=== PATIENT | female | born 1990 | race American Indian/Alaskan Native ===

== ENCOUNTER 2018-04-07 06:42 | Emergency (ER) | payer SELFPAY ==
[2018-04-07 07:00] VITALS: BP 108/51
[2018-04-07] MEDS ORDERED: BENADRYL IM ONE (07:22)
[2018-04-07] MEDS ORDERED: DECADRON IM ONE (07:22)
--- NOTE | 2018-04-07 07:22 | Emergency Department Report ---
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 TD vaccine is up-to-date. Unknown cause of rash. No new food, detergent, lotion etc. in her environment. Denies any respiratory involvement such as cough, wheezing, stridor, chest pain or tightness, shortness of breath, swelling of the legs or tongue. Denies any nausea or vomiting. Denies any fever or chills. Nothing makes rash better nothing makes it worse. No medication tried to resolve itching or rash. No known allergies per patient ED Review of Systems ROS: Stated complaint: RASH Other details as noted in HPI Constitutional: denies: chills, fever Eyes: denies: eye pain, eye discharge, vision change ENT: denies: ear pain, throat pain, congestion Respiratory: denies: cough, shortness of breath, SOB with exertion, SOB at rest , stridor, wheezing Cardiovascular: denies: chest pain, palpitations, edema, syncope Gastrointestinal: denies: nausea, vomiting, diarrhea, constipation Musculoskeletal: denies: back pain, joint swelling, arthralgia Skin: rash, pruritus. denies: lesions Neurological: denies: headache, weakness ED Past Medical Hx - Past Medical History Previous Medical History?: No - Surgical History Past Surgical History?: No - Family History Family history: hypertension - Social History Smoking Status: Never Smoker Substance Use Type: Alcohol Other Social History: Single female, works - Medications Home Medications: Home Medications Medication Instructions Recorded Confirmed Last Taken Type hydrOXYzine HCL [Atarax] 25 mg PO Q6HR PRN #16 tablet 04/07/18 Unknown Rx methylPREDNISolone [Medrol Dose 4 mg PO QAM 6 Days #1 pack 04/07/18 Unknown Rx Twan] Rash Exam - Exam General: Vital signs noted. No distress. Alert and acting appropriately. This is a 28-year-old female well-nourished well-developed in no acute distress. HEENT: No Periorbital Edema, No Conjuctival Injection, No Chemosis, No Perioral Edema, No Tongue Edema, No Uvular Edema, No Compromised Airway, No Drooling Lungs: Yes Good Air Exchange (CTAB), No Wheezes, No Ronchi, No Stridor, No Cough , No Labored Respirations, No Retractions, No Use of Accessory Muscles, No Other Abnormal Lung Sounds Heart: Yes Regular (S1, S2), No Murmur Skin: Yes Erythema, Yes Other (papular in nature.), No Urticarial Rash, No Maculopapular Rash, No Morbilliform rash, No Bulla(e), No Excoriations, No Weeping, No Tenderness, No Edema, No Encrustations Other: Positive: Abdomen Normal (soft, nontender to palpate in all quadrants and no guarding no rebound tenderness), Neurologic Normal (alert and oriented 3 with normal gait), Musculoskeletal Normal (no clubbing, cyanosis or edema. + 2 pulses all extremities and no neurovascular compromise) ED Course Vital Signs 04/07/18 06:52 Temperature 98.2 F Pulse Rate 61 Respiratory 16 Rate Blood Pressure 108/51 O2 Sat by Pulse 98 Oximetry - Reevaluation(s) Reevaluation #1: 04/07/18 07:46 Patient given Benadryl 50 mg IM and Decadron 10 mg IM for acute rash. Itching is better. ED Medical Decision Making - Medical Decision Making ED course: DX: 1-Contact dermatitis-patient given Decadron 10 mg IM 1 and emergency room and will be sent home with Medrol Dosepak 2. Pruritus-Benadryl 50 mg IM given which relieved the itching. Patient will be sent home and after Atarax Patient is stable and I discussed diagnosis and treatment plan with follow-up to dermatology as she was understanding. I also discussed with her she doesn't have a primary care doctor she can follow up with [facility]. Discharged home with her family member in stable condition with prescription for Medrol Dosepak and Atarax. Critical care attestation.: If time is entered above; I have spent that time in minutes in the direct care of this critically ill patient, excluding procedure time. ED Disposition Clinical Impression: Rash and nonspecific skin eruption, Pruritic condition Disposition: DC-01 TO HOME OR SELFCARE Is pt being admited?: No Does the pt Need Aspirin: No Condition: Stable Instructions: Acute Rash (ED), Contact Dermatitis (ED), Itchy Skin (ED) Additional Instructions: Keep affected area clean and dry Take medication as prescribed Atarax is for itching but please do not drive or operate heavy machinery while taking this medication as it causes drowsiness Follow up with dermatologists Follow up at [facility] as instructed and please refer to discharge instruction paperwork for detailed information and address and phone number Prescriptions: hydrOXYzine HCL [Atarax] 25 mg PO Q6HR PRN #16 tablet PRN Reason: Itching methylPREDNISolone [Medrol Dose Twan] 4 mg PO QAM 6 Days #1 pack Referrals: [facility] [Outside] - 04/08/18 SANDRA LEAL MD [Staff Physician] - 04/08/18 Forms: Work/School Release Form(ED)
== END 2018-04-07 08:02 | disposition home or self-care (01) ==
LOC: ED 06:42
DX: R21 Rash and other nonspecific skin eruption (principal)
CPT/HCPCS: 96372; 99282; J1100; J1200

== ENCOUNTER 2018-12-18 10:22 | Emergency (ER) | payer BC ==
[2018-12-18] MEDS ORDERED: IBUPROFEN PO ONE (10:58)
[2018-12-18] MEDS ORDERED: DECADRON IM ONE (10:58)
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
[2018-12-18] MEDS ORDERED: IBUPROFEN ONE (11:27)
[2018-12-18] MEDS ORDERED: DECADRON ONE (11:27)
[2018-12-18] MEDS ORDERED: ZOFRAN ONE (12:04)
[2018-12-18 15:27] VITALS: BP 118/54
== END 2018-12-18 11:38 | disposition home or self-care (01) ==
LOC: ED 10:22
DX: S63.501A Unspecified sprain of right wrist, initial encounter (principal); X50.0XXA Overexertion from strenuous movement or load, initial encounter; Y93.89 Activity, other specified; Y99.8 Other external cause status; Y92.89 Other specified places as the place of occurrence of the external cause
CPT/HCPCS: 29125; 96372; 99283; J1100; J2405

== ENCOUNTER 2019-01-11 17:17 | Emergency (ER) | payer BC ==
[2019-01-11] MEDS ORDERED: NACL 0.9% 500 ML 500 ML IV ONE (18:01)
--- NOTE | 2019-01-11 18:09 | Emergency Department Report ---
ED Allergic Reaction HPI - General Chief complaint: Allergic Reaction Stated complaint: ALLERGIC REACTION Time Seen by Provider: 01/11/19 17:46 Source: patient, EMS Mode of arrival: Stretcher Limitations: No Limitations - History of Present Illness Initial Comments: 28-year-old female presents to ED with allergic reaction. Patient states she was at work and began experiencing itching rash all over. Patient unclear what caused this reaction. She states this has happened in the past, while she was in [place], with unknown trigger. Patient states today she went to the nurse's office at her job and an EpiPen was administered. EMS was called, patient was given 50 mg of Benadryl and 20 mg Decadron IV. EMS reports patient had diffuse urticarial rash which is now resolved. Patient denies shortness of breath, nausea, vomiting. MD Complaint: allergic reaction -: This afternoon Exposure: unknown Symptoms: rash, itching. denies: facial swelling, lip swelling, difficulty swallowing, difficulty breathing, orolingual swelling, nausea, vomiting Severity: moderate Treatment Prior to Arrival: benadryl, epinephrine, steroids Previous Allergy History: prior ED visit(s) - Related Data Previous Rx's Medication Instructions Recorded Last Taken Type predniSONE [Deltasone] 20 mg PO DAILY #5 tablet 12/18/18 Unknown Rx predniSONE [Prednisone] 50 mg PO DAILY #5 tablet 01/11/19 Unknown Rx Allergies Allergy/AdvReac Type Severity Reaction Status Date / Time No Known Allergies Allergy Verified 03/02/16 12:05 ED Review of Systems ROS: Stated complaint: ALLERGIC REACTION Other details as noted in HPI Comment: All other systems reviewed and negative Constitutional: denies: chills, fever Respiratory: denies: shortness of breath, wheezing Cardiovascular: denies: chest pain Gastrointestinal: denies: abdominal pain, nausea, vomiting Skin: rash, pruritus ED Past Medical Hx - Social History Smoking Status: Never Smoker Substance Use Type: Alcohol - Medications Home Medications: Home Medications Medication Instructions Recorded Confirmed Last Taken Type predniSONE [Deltasone] 20 mg PO DAILY #5 tablet 12/18/18 Unknown Rx predniSONE [Prednisone] 50 mg PO DAILY #5 tablet 01/11/19 Unknown Rx ED Physical Exam - General Limitations: No Limitations General appearance: alert, in no apparent distress - Head Head exam: Present: atraumatic, normocephalic - Eye Eye exam: Present: normal appearance - ENT ENT exam: Present: mucous membranes moist - Neck Neck exam: Present: normal inspection - Respiratory Respiratory exam: Present: normal lung sounds bilaterally. Absent: respiratory distress - Cardiovascular Cardiovascular Exam: Present: regular rate, normal rhythm - GI/Abdominal GI/Abdominal exam: Present: soft. Absent: distended, tenderness - Extremities Exam Extremities exam: Present: normal inspection, full ROM - Neurological Exam Neurological exam: Present: alert, oriented X3, CN II-XII intact. Absent: motor sensory deficit - Psychiatric Psychiatric exam: Present: normal affect, normal mood - Skin Skin exam: Present: warm, dry, intact, normal color. Absent: rash, urticaria ED Course Vital Signs 01/11/19 01/11/19 01/11/19 19:04 19:05 19:07 Temperature Pulse Rate Respiratory Rate Blood Pressure 133/78 133/78 Blood Pressure [Left] O2 Sat by Pulse 100 99 99 Oximetry 01/11/19 01/11/19 01/11/19 19:09 19:11 19:17 Temperature Pulse Rate 91 H Respiratory 15 Rate Blood Pressure 133/78 133/78 129/69 Blood Pressure [Left] O2 Sat by Pulse 99 99 100 Oximetry 01/11/19 01/11/19 01/11/19 19:21 19:23 19:25 Temperature Pulse Rate 77 80 79 Respiratory 20 28 H 27 H Rate Blood Pressure 129/69 129/69 129/69 Blood Pressure [Left] O2 Sat by Pulse 98 99 98 Oximetry 01/11/19 01/11/19 01/11/19 19:27 19:29 19:31 Temperature Pulse Rate 82 81 83 Respiratory 26 H 27 H 24 Rate Blood Pressure 129/69 129/69 129/69 Blood Pressure [Left] O2 Sat by Pulse 99 99 99 Oximetry 01/11/19 01/11/19 01/11/19 19:33 19:35 19:37 Temperature Pulse Rate 85 83 83 Respiratory 26 H 37 H 29 H Rate Blood Pressure 129/69 129/69 129/69 Blood Pressure [Left] O2 Sat by Pulse 99 99 99 Oximetry 01/11/19 01/11/19 01/11/19 19:39 19:45 19:47 Temperature Pulse Rate 85 86 83 Respiratory 30 H 22 13 Rate Blood Pressure 129/69 129/69 129/69 Blood Pressure [Left] O2 Sat by Pulse 99 99 99 Oximetry 01/11/19 01/11/19 01/11/19 19:53 19:55 19:56 Temperature Pulse Rate 83 91 H 77 Respiratory 16 10 L 11 L Rate Blood Pressure 129/69 129/69 129/69 Blood Pressure [Left] O2 Sat by Pulse 99 99 99 Oximetry 01/11/19 01/11/19 01/11/19 20:31 20:33 20:34 Temperature Pulse Rate 79 76 79 Respiratory 26 H 20 16 Rate Blood Pressure 129/69 129/69 124/75 Blood Pressure [Left] O2 Sat by Pulse 99 98 98 Oximetry 01/11/19 01/11/19 01/11/19 20:35 20:37 20:40 Temperature 98.9 F Pulse Rate 83 97 H 79 Respiratory 21 11 L 15 Rate Blood Pressure 124/75 124/75 Blood Pressure 124/75 [Left] O2 Sat by Pulse 99 98 98 Oximetry - Reevaluation(s) Reevaluation #1: 01/11/19 20:03 Pt feeling much better at this time. Symptoms have resolved. Will d/c at this time. ED Medical Decision Making - Differential Diagnosis allergic reaction Critical care attestation.: If time is entered above; I have spent that time in minutes in the direct care of this critically ill patient, excluding procedure time. ED Disposition Clinical Impression: Allergic reaction Disposition: DC-01 TO HOME OR SELFCARE Is pt being admited?: No Condition: Stable Instructions: Urticaria (ED), Food Allergy (ED), Anaphylaxis (ED), Allergies (ED) Prescriptions: predniSONE [Prednisone] 50 mg PO DAILY #5 tablet Referrals: YESENIA WEAVER MD [Primary Care Provider] - 3-5 Days Time of Disposition: 20:07
[2019-01-11 20:40] VITALS: BP 124/75
== END 2019-01-11 20:40 | disposition home or self-care (01) ==
LOC: ED 17:17
DX: T78.40XA Allergy, unspecified, initial encounter (principal); X58.XXXA Exposure to other specified factors, initial encounter
CPT/HCPCS: 99283

== ENCOUNTER 2019-04-17 16:59 | Emergency (ER) | payer BC, OTHER ==
--- NOTE | 2019-04-17 17:30 | Emergency Department Report ---
Blank Doc - Documentation Documentation: this is a 29-year-old female that presents with left flank pain. Denies any ur inary symptoms. This initial assessment/diagnostic orders/clinical plan/treatment(s) is/are subject to change based on patient's health status, clinical progression and re- assessment by fellow clinical providers in the ED. Further treatment and workup at subsequent clinical providers discretion. Patient/guardians urged not to elope from the ED as their condition may be serious if not clinically assessed and managed. Initial orders include: 1- Patient sent to [facility] for further evaluation and treatment 2- UA
[2019-04-17 17:32] VITALS: BP 118/41
[2019-04-17 18:06] LABS: Bilirubin,Urine NEG (Negative); Blood,Urine NEG (Negative); Color,Urine Yellow (Yellow); Mucus,Urine 1+ /HPF; Protein,Urine <15 mg/dL mg/dL (Negative); Urobilinogen,Urine < 2.0 mg/dL (<2.0)
[2019-04-17 18:07] LABS: HCG Qualitative,Urine Negative (Negative)
[2019-04-17] MEDS ORDERED: ZOFRAN ODT PO ONE (18:57)
[2019-04-17] MEDS ORDERED: ZOFRAN ODT ONE (18:58)
[2019-04-17] MEDS ORDERED: NACL 0.9% 1000 ML 1,000 ML IV ONE (19:38)
[2019-04-17] MEDS ORDERED: TORADOL IV ONE (19:39)
[2019-04-17] MEDS ORDERED: REGLAN IV ONE (19:39)
[2019-04-17] MEDS ORDERED: PEPCID IV ONE (19:39)
[2019-04-17 20:08] LABS: Basophils % (Auto) 0.3 % (0.0-1.8); Hematocrit 38.4 % (30.3-42.9); Hemoglobin 12.9 gm/dl (10.1-14.3); Lymphocytes # (Auto) 1.3 K/mm3 (1.2-5.4); Lymphocytes % (Auto) 10.7 % (13.4-35.0); Mean Corpuscular HGB Conc 34 % (30-34); Mean Corpuscular Volume 86 fl (79-97); Monocytes # (Auto) 0.7 K/mm3 (0.0-0.8); Monocytes % (Auto) 5.6 % (0.0-7.3); Platelet Count 233 K/mm3 (140-440); Red Blood Count 4.47 M/mm3 (3.65-5.03); Red Cell Distribution Width 14.9 % (13.2-15.2)
[2019-04-17 20:25] LABS: Alanine Aminotransferase 14 units/L (7-56); Albumin 4.6 g/dL (3.9-5); BUN/Creatinine Ratio 12; Blood Urea Nitrogen 12 mg/dL (7-17); Hemolysis Index 10
--- NOTE | 2019-04-17 21:16 | Cat Scan Report ---
PROCEDURE: CT ABDOMEN PELVIS WO CON HISTORY: left flank pain FINDINGS: Unenhanced CT of the abdomen and pelvis was performed. The heart is normal in size. The angelia g bases appear clear. FINDINGS: There is mild left hydroureteronephrosis and there is mild left perinephric stranding. There is a 0.2 cm left nonobstructing renal calculus. No right-sided stone is seen. The gallbladder is unremarkable. No focal pancreatic lesion is seen. The adrenal glands are within normal limits. There is no small or large bowel obstruction. Pelvis: There is a normal appendix. There is no evidence of diverticulitis. There is no adnexal mass. There is a 0.45 cm stone at the left ureterovesical junction. IMPRESSION: ABDOMEN: Mild left hydronephrosis Pelvis: 0.45 cm stone at left ureterovesical junction This document is electronically signed by Deacon Hay MD., April 17 2019 10:14:44 PM ET
--- NOTE | 2019-04-17 22:46 | Emergency Department Report ---
ED Abdominal Pain HPI - General Chief Complaint: Abdominal Pain Stated Complaint: L SIDE PAIN Time Seen by Provider: 04/17/19 17:29 Source: patient Mode of arrival: Ambulatory Limitations: No Limitations - History of Present Illness Initial Comments: Patient is a A2. 9-year-old -[place] female with no past medical history presents to the ED with complaint of acute onset persistent severe left flank pain with intractable nausea and vomiting for the last 12 hours intermittently. Patient states that she has not been able to keep anything down since the onset of the symptoms. Patient states that the pain and nausea and vomiting have been persistent since onset. The patient denies vaginal bleeding, dysuria, urinary frequency and urgency, hematuria, diarrhea, fever, chills, dizziness, lightheadedness, chest pain, shortness of breath or sore throat. MD Complaint: abdominal pain, flank pain (left flank), other (Nausea and vomiting) -: Sudden, hour(s) (12) Location: LLQ, L flank Radiation: LLQ, L flank Severity: severe Severity scale (0 -10): 7 Quality: cramping, stabbing, aching, sharp Consistency: constant Improves With: nothing Worsens With: nothing Context: other (Spontaneous) Associated Symptoms: nausea, vomiting. denies: diarrhea, fever, chills, constipation, dysuria, hematemesis, hematochezia, melena, anorexia, syncope - Related Data Previous Rx's Medication Instructions Recorded Last Taken Type predniSONE [Deltasone] 20 mg PO DAILY #5 tablet 12/18/18 Unknown Rx predniSONE [Prednisone] 50 mg PO DAILY #5 tablet 01/11/19 Unknown Rx Acetaminophen/Codeine [Tylenol 1 tab PO Q6H PRN #15 tab 04/17/19 Unknown Rx /Codeine # 3 tab] Ketorolac [Toradol] 10 mg PO Q8H PRN #20 tablet 04/17/19 Unknown Rx Ondansetron [Zofran Odt] 4 mg PO Q6HR #20 tab.rapdis 04/17/19 Unknown Rx Tamsulosin [Flomax] 0.4 mg PO QDAY #10 cap 04/17/19 Unknown Rx Allergies Allergy/AdvReac Type Severity Reaction Status Date / Time No Known Allergies Allergy Verified 03/02/16 12:05 ED Review of Systems ROS: Stated complaint: L SIDE PAIN Other details as noted in HPI Comment: All other systems reviewed and negative Constitutional: no symptoms reported, see HPI. denies: chills, diaphoresis, fever, malaise, weakness Eyes: as per HPI. denies: eye discharge, vision change ENT: as per HPI. denies: ear pain, throat pain, dental pain, hearing loss, epistaxis Respiratory: no symptoms reported, see HPI. denies: cough, orthopnea, shortness of breath, SOB with exertion, SOB at rest Cardiovascular: as per HPI. denies: chest pain, palpitations, dyspnea on exertion, edema, syncope, paroxysmal nocturnal dyspnea, other Endocrine: no symptoms reported, see HPI. denies: excessive sweating, intolerance to cold, intolerance to heat, increased hunger, increased urine, unexplained weight gain Gastrointestinal: as per HPI, abdominal pain, nausea, vomiting. denies: diarrhea, hematochezia Genitourinary: as per HPI. denies: urgency, dysuria, frequency, hematuria, discharge, abnormal menses, dyspareunia Musculoskeletal: as per HPI, back pain. denies: joint swelling, arthralgia, myalgia, other Skin: as per HPI. denies: change in color, change in hair/nails Neurological: as per HPI. denies: headache, weakness, numbness, paresthesias, confusion, abnormal gait, vertigo Psychiatric: as per HPI. denies: anxiety, depression, auditory hallucinations, visual hallucinations Hematological/Lymphatic: as per HPI ED Past Medical Hx - Past Medical History Previous Medical History?: No - Surgical History Past Surgical History?: No - Social History Smoking Status: Never Smoker Substance Use Type: None - Medications Home Medications: Home Medications Medication Instructions Recorded Confirmed Last Taken Type predniSONE [Deltasone] 20 mg PO DAILY #5 tablet 12/18/18 Unknown Rx predniSONE [Prednisone] 50 mg PO DAILY #5 tablet 01/11/19 Unknown Rx Acetaminophen/Codeine [Tylenol 1 tab PO Q6H PRN #15 tab 04/17/19 Unknown Rx /Codeine # 3 tab] Ketorolac [Toradol] 10 mg PO Q8H PRN #20 tablet 04/17/19 Unknown Rx Ondansetron [Zofran Odt] 4 mg PO Q6HR #20 tab.rapdis 04/17/19 Unknown Rx Tamsulosin [Flomax] 0.4 mg PO QDAY #10 cap 04/17/19 Unknown Rx ED Physical Exam - General Limitations: No Limitations General appearance: alert, in no apparent distress - Head Head exam: Present: atraumatic, normocephalic - Eye Eye exam: Present: normal appearance, PERRL, EOMI Pupils: Present: normal accommodation - ENT ENT exam: Present: normal exam, normal orophraynx, mucous membranes moist, TM's normal bilaterally, normal external ear exam - Neck Neck exam: Present: normal inspection, full ROM - Respiratory Respiratory exam: Present: normal lung sounds bilaterally. Absent: respiratory distress, wheezes, rales, rhonchi, chest wall tenderness, accessory muscle use, decreased breath sounds, prolonged expiratory - Cardiovascular Cardiovascular Exam: Present: regular rate, normal rhythm, normal heart sounds - GI/Abdominal GI/Abdominal exam: Present: soft, normal bowel sounds. Absent: distended, tenderness, guarding, rebound, hyperactive bowel sounds, hypoactive bowel sounds, organomegaly - Rectal Rectal exam: Present: deferred - Extremities Exam Extremities exam: Present: normal inspection, full ROM, normal capillary refill - Back Exam Back exam: Present: normal inspection, full ROM, CVA tenderness (L). Absent: tenderness, CVA tenderness (R), muscle spasm, paraspinal tenderness - Neurological Exam Neurological exam: Present: alert, oriented X3, CN II-XII intact, normal gait, reflexes normal - Psychiatric Psychiatric exam: Present: normal affect - Skin Skin exam: Present: warm, dry, intact, normal color ED Course Vital Signs 04/17/19 04/17/19 04/17/19 17:30 20:15 20:18 Temperature 98.5 F Pulse Rate 69 Respiratory 16 18 18 Rate Blood Pressure 118/41 O2 Sat by Pulse 97 Oximetry - Reevaluation(s) Reevaluation #1: 04/17/19 22:49 Patient is alert and oriented 3 and is not in distress with normal vital signs. Labs were drawn and patient uses for pain, nausea and vomiting, also given normal saline 1 L IV fluid bolus. Abdomen pelvis CT scan without contrast was ordered. Lab test results were reviewed and are unremarkable except acute leukocytosis of 11,900 but urinalysis is unremarkable. Abdomen pelvis CT scan without contrast shows a 0.2 cm nonobstructing left renal calculus. There is also a 0.45 cm stone in the left UVJ with mild hydronephrosis. On reevaluation, patient's pain is well controlled with medications, nausea and vomiting as a result as well as medications. Patient feeling much better with the treatment. Patient was discharged home on medications and advised to follow-up with the urologist campus monitor Dr. Vega for reevaluation in 2-3 days. Patient also advised to return to the ED immediately if symptoms get worse. 04/17/19 22:52 ED Medical Decision Making - Lab Data Result diagrams: 04/17/19 19:52 04/17/19 19:52 - Radiology Data Radiology results: report reviewed, image reviewed Mild left hydronephrosis due to a 0.45 cm stone in the left UVJ; Also 0.2 cm nonobstructing renal calculus - Medical Decision Making Patient is alert and oriented 3 and is not in distress with normal vital signs. Labs were drawn and patient uses for pain, nausea and vomiting, also given n ormal saline 1 L IV fluid bolus. Abdomen pelvis CT scan without contrast was ordered. Lab test results were reviewed and are unremarkable except acute leukocytosis of 11,900 but urinalysis is unremarkable. Abdomen pelvis CT scan without contrast shows a 0.2 cm nonobstructing left renal calculus. There is also a 0.45 cm stone in the left UVJ with mild hydronephrosis. On reevaluation, patient's pain is well controlled with medications, nausea and vomiting as a result as well as medications. Patient feeling much better with the treatment. Patient was discharged home on medications and advised to follow-up with the urologist campus monitor Dr. Vega for reevaluation in 2-3 days. Patient also advised to return to the ED immediately if symptoms get worse. - Differential Diagnosis Left flank pain, nausea and vomiting, left UVJ kidney stone Critical care attestation.: If time is entered above; I have spent that time in minutes in the direct care of this critically ill patient, excluding procedure time. ED Disposition Clinical Impression: Acute abdominal pain in left flank, Nausea and vomiting in adult, Kidney stone on left side Disposition: TO HOME OR SELFCARE Is pt being admited?: No Does the pt Need Aspirin: No Condition: Stable Instructions: Abdominal Pain (ED), Kidney Stones (ED), Flank Pain (ED), Acute Nausea and Vomiting (ED) Additional Instructions: Take medications with food, drink plenty of fluids and follow up with their urologist campus monitor Dr. Vega as advised in 2-3 days. Return to the ED immediately if symptoms get worse. Prescriptions: Tamsulosin [Flomax] 0.4 mg PO QDAY #10 cap Ketorolac [Toradol] 10 mg PO Q8H PRN #20 tablet PRN Reason: Pain Acetaminophen/Codeine [Tylenol /Codeine # 3 tab] 1 tab PO Q6H PRN #15 tab PRN Reason: Pain , Severe (7-10) Ondansetron [Zofran Odt] 4 mg PO Q6HR #20 tab.rapdis Referrals: HUMBERTO VEGA MD [Staff Physician] - 3-5 Days Time of Disposition: 22:59 Print Language: PERSIAN
[2019-04-17] MEDS ORDERED: FLOMAX PO ONE (23:00)
== END 2019-04-17 23:23 | disposition home or self-care (01) ==
LOC: ED 16:59
DX: N20.0 Calculus of kidney (principal); N13.30 Unspecified hydronephrosis; R11.2 Nausea with vomiting, unspecified; R10.32 Left lower quadrant pain
CPT/HCPCS: 36415; 74176; 80053; 81001; 81025; 83690; 85025; 87086; 96361; 96374; 96375; 99284; J1885; J2765; J7030; Q0162

== ENCOUNTER 2020-11-06 00:52 | Emergency (ER) | payer SELFPAY ==
[2020-11-06] MEDS ORDERED: AMOXICILLIN 500 MG CAP PO ONE (04:21)
[2020-11-06] MEDS ORDERED: ACETAMINOPHEN 500 MG TAB PO ONE (04:21)
--- NOTE | 2020-11-06 04:37 | Emergency Department Report ---
ED ENT HPI - General Chief complaint: Dental/Oral Stated complaint: TOOTHACHE Time Seen by Provider: 11/06/20 04:21 Source: patient Mode of arrival: Ambulatory Limitations: No Limitations - History of Present Illness Initial comments: Patient a 30-year-old female who presents for dental pain x3 days. Patient has a history of dental caries. Patient denies fevers or chills. There is no throat or ear pain. Pain described at 5/10 aching sharp. Pain is relieved by nothing tried. Pain is exacerbated by hot and cold stimuli. However patient is tolerating p.o. intake without difficulty. MD complaint: tooth pain - Related Data Previous Rx's Medication Instructions Recorded Last Taken Type predniSONE [Deltasone] 20 mg PO DAILY #5 tablet 12/18/18 Unknown Rx predniSONE [Prednisone] 50 mg PO DAILY #5 tablet 01/11/19 Unknown Rx Acetaminophen/Codeine [Tylenol 1 tab PO Q6H PRN #15 tab 04/17/19 Unknown Rx /Codeine # 3 tab] Ketorolac [Toradol] 10 mg PO Q8H PRN #20 tablet 04/17/19 Unknown Rx Ondansetron [Zofran Odt] 4 mg PO Q6HR #20 tab.rapdis 04/17/19 Unknown Rx Tamsulosin [Flomax] 0.4 mg PO QDAY #10 cap 04/17/19 Unknown Rx Acetaminophen [Acetaminophen TAB] 650 mg PO Q6HR PRN #30 tablet 11/06/20 Unknown Rx Amoxicillin [Trimox CAP] 500 mg PO Q8H 7 Days #21 capsule 11/06/20 Unknown Rx Allergies Allergy/AdvReac Type Severity Reaction Status Date / Time No Known Allergies Allergy Verified 03/02/16 12:05 ED Dental HPI - General Chief complaint: Dental/Oral Stated complaint: TOOTHACHE Time Seen by Provider: 11/06/20 04:21 Source: patient Mode of arrival: Ambulatory Limitations: No Limitations - Related Data Previous Rx's Medication Instructions Recorded Last Taken Type predniSONE [Deltasone] 20 mg PO DAILY #5 tablet 12/18/18 Unknown Rx predniSONE [Prednisone] 50 mg PO DAILY #5 tablet 01/11/19 Unknown Rx Acetaminophen/Codeine [Tylenol 1 tab PO Q6H PRN #15 tab 04/17/19 Unknown Rx /Codeine # 3 tab] Ketorolac [Toradol] 10 mg PO Q8H PRN #20 tablet 04/17/19 Unknown Rx Ondansetron [Zofran Odt] 4 mg PO Q6HR #20 tab.rapdis 04/17/19 Unknown Rx Tamsulosin [Flomax] 0.4 mg PO QDAY #10 cap 04/17/19 Unknown Rx Acetaminophen [Acetaminophen TAB] 650 mg PO Q6HR PRN #30 tablet 11/06/20 Unknown Rx Amoxicillin [Trimox CAP] 500 mg PO Q8H 7 Days #21 capsule 11/06/20 Unknown Rx Allergies Allergy/AdvReac Type Severity Reaction Status Date / Time No Known Allergies Allergy Verified 03/02/16 12:05 ED Review of Systems ROS: Stated complaint: TOOTHACHE Other details as noted in HPI Constitutional: denies: chills, fever Eyes: denies: eye pain, eye discharge, vision change ENT: dental pain Respiratory: denies: cough, shortness of breath, wheezing Cardiovascular: denies: chest pain, palpitations Endocrine: no symptoms reported Gastrointestinal: denies: abdominal pain, nausea, diarrhea Genitourinary: denies: urgency, dysuria, discharge Musculoskeletal: denies: back pain, joint swelling, arthralgia Skin: denies: rash, lesions Neurological: denies: headache, weakness, paresthesias Psychiatric: denies: anxiety, depression Hematological/Lymphatic: denies: easy bleeding, easy bruising ED Past Medical Hx - Past Medical History Previous Medical History?: No - Surgical History Past Surgical History?: No - Social History Smoking Status: Never Smoker Substance Use Type: None - Medications Home Medications: Home Medications Medication Instructions Recorded Confirmed Last Taken Type predniSONE [Deltasone] 20 mg PO DAILY #5 tablet 12/18/18 Unknown Rx predniSONE [Prednisone] 50 mg PO DAILY #5 tablet 01/11/19 Unknown Rx Acetaminophen/Codeine [Tylenol 1 tab PO Q6H PRN #15 tab 04/17/19 Unknown Rx /Codeine # 3 tab] Ketorolac [Toradol] 10 mg PO Q8H PRN #20 tablet 04/17/19 Unknown Rx Ondansetron [Zofran Odt] 4 mg PO Q6HR #20 tab.rapdis 04/17/19 Unknown Rx Tamsulosin [Flomax] 0.4 mg PO QDAY #10 cap 04/17/19 Unknown Rx Acetaminophen [Acetaminophen TAB] 650 mg PO Q6HR PRN #30 tablet 11/06/20 Unknown Rx Amoxicillin [Trimox CAP] 500 mg PO Q8H 7 Days #21 capsule 11/06/20 Unknown Rx ED Physical Exam - General Limitations: No Limitations General appearance: alert, in no apparent distress - Head Head exam: Present: atraumatic, normocephalic - Eye Eye exam: Present: normal appearance, EOMI Pupils: Present: normal accommodation - ENT ENT exam: Present: mucous membranes moist - Expanded ENT Exam Expanded Teeth exam: Present: dental caries, dental tenderness # (29 no focal abscess mild erythem no gum or facial swelling ) - Neck Neck exam: Present: normal inspection, full ROM. Absent: lymphadenopathy - Respiratory Respiratory exam: Present: normal lung sounds bilaterally. Absent: respiratory distress, wheezes, stridor - Cardiovascular Cardiovascular Exam: Present: regular rate, normal rhythm, normal heart sounds. Absent: systolic murmur, diastolic murmur, rubs, gallop - GI/Abdominal GI/Abdominal exam: Present: soft, normal bowel sounds - Rectal Rectal exam: Present: deferred - Extremities Exam Extremities exam: Present: normal inspection, full ROM. Absent: tenderness - Back Exam Back exam: Present: normal inspection, full ROM. Absent: tenderness - Neurological Exam Neurological exam: Present: alert, oriented X3, CN II-XII intact, normal gait - Psychiatric Psychiatric exam: Present: normal affect, normal mood - Skin Skin exam: Present: warm, dry, intact, normal color. Absent: rash ED Course Vital Signs 11/06/20 00:55 Temperature 97.2 F L Pulse Rate 74 Respiratory 16 Rate Blood Pressure 114/61 O2 Sat by Pulse 98 Oximetry ED Medical Decision Making - Medical Decision Making Diagnoses infected dental caries. Plan DC to home with prescriptions, follow-up with dental. There is no trismus, no stridor no wheezing. Airway is patent, there is no throat swelling. Patient will be DC'd home in stable condition at this time and follow-up with dental as directed. Critical care attestation.: If time is entered above; I have spent that time in minutes in the direct care of this critically ill patient, excluding procedure time. ED Disposition Clinical Impression: Dental caries Disposition: DC-01 TO HOME OR SELFCARE Is pt being admited?: No Does the pt Need Aspirin: No Condition: Stable Instructions: Preventive Dental Care, Adult Prescriptions: Acetaminophen [Acetaminophen TAB] 650 mg PO Q6HR PRN #30 tablet PRN Reason: Pain Amoxicillin [Trimox CAP] 500 mg PO Q8H 7 Days #21 capsule Referrals: [facility] [Provider Group] - 3-5 Days Forms: Work/School Release Form(ED) Time of Disposition: 04:38
[2020-11-06 04:47] VITALS: BP 106/56
== END 2020-11-06 04:46 | disposition home or self-care (01) ==
LOC: ED 00:52
DX: K02.9 Dental caries, unspecified (principal); Z79.899 Other long term (current) drug therapy
CPT/HCPCS: 99282

== ENCOUNTER 2020-11-27 11:25 | Emergency (ER) | payer OTHER ==
[2020-11-27 11:52] VITALS: BP 118/58
[2020-11-27] MEDS ORDERED: METOCLOPRAMIDE 10 MG TAB PO ONE (11:58)
[2020-11-27] MEDS ORDERED: ACETAMINOPHEN 325 MG TAB PO ONE (11:58)
[2020-11-27] MEDS ORDERED: diphenhydrAMINE 25 MG CAP PO ONE (11:58)
[2020-11-27 12:22] LABS: Bilirubin,Urine NEG (Negative); Blood,Urine NEG (Negative); Color,Urine Yellow (Yellow); Mucus,Urine 2+ /HPF; Protein,Urine <15 mg/dL mg/dL (Negative); Urobilinogen,Urine < 2.0 mg/dL (<2.0)
[2020-11-27 12:47] LABS: Basophils % (Auto) 0.1 % (0.0-1.8); Eosinophils % (Auto) 0.2 % (0.0-4.3); Hematocrit 34.7 % (30.3-42.9); Hemoglobin 11.6 gm/dl (10.1-14.3); Lymphocytes # (Auto) 0.5 K/mm3 (1.2-5.4); Lymphocytes % (Auto) 7.5 % (13.4-35.0); Mean Corpuscular HGB Conc 34 % (30-34); Mean Corpuscular Volume 87 fl (79-97); Monocytes # (Auto) 0.6 K/mm3 (0.0-0.8); Monocytes % (Auto) 8.7 % (0.0-7.3); Platelet Count 145 K/mm3 (140-440); Red Blood Count 4.01 M/mm3 (3.65-5.03); Red Cell Distribution Width 13.8 % (13.2-15.2)
[2020-11-27 13:12] LABS: Alanine Aminotransferase 53 units/L (7-56); Albumin 3.8 g/dL (3.9-5); Blood Urea Nitrogen 6 mg/dL (7-17); Calcium 9.1 mg/dL (8.4-10.2); Hemolysis Index 0
[2020-11-27 13:13] LABS: BUN/Creatinine Ratio 12
--- NOTE | 2020-11-27 13:27 | Ultrasound Report ---
ULTRASOUND OBSTETRIC INDICATION / CLINICAL INFORMATION: , abd pain. Clinical Gestational Age (GA) in weeks, days: 17 weeks 5 days TECHNIQUE: Transabdominal. COMPARISON: None available. FINDINGS: There is a single intrauterine . Examination is not tailored to evaluate detailed felipa travis. Biparietal Diameter = 4.4 cm = 19 weeks 3 days Head Circumference = 16.6 cm = 19 weeks 2 days Abdominal Circumference = 13.2 cm = 18 weeks 5 days Femur Length = 3 cm = 19 weeks 1 day Average Ultrasound Age (AUA) = 19 weeks 1 day Heart Rate: 167 beats per minute. Estimated Weight in grams (if calculated): 268 g Position: cephalic. Cervix: closed. Length in cm (if measured): 3.7 cm Placenta: Posterior and free of the os. Amniotic Fluid Volume: Adequate Amniotic Fluid Index (ANDREA) in cm (if calculated): Not calculated. Maternal Adnexa: No significant abnormality. IMPRESSION: Single, living intrauterine with estimated sonographic age of 19 weeks 1 day. No acute abno rmality identified. Signer Name: Nabil Shelton MD Signed: 11/27/2020 1:22 PM Workstation Name: [id number] [id number]
--- NOTE | 2020-11-27 13:35 | Emergency Department Report ---
ED Abdominal Pain HPI - General Chief Complaint: Abdominal Pain Stated Complaint: DIZZY 17 WK PREG Time Seen by Provider: 11/27/20 11:54 Source: patient Mode of arrival: Ambulatory Limitations: No Limitations - History of Present Illness Initial Comments: Patient is a 30-year-old female who presents emergency room with complaints of left lateral abdominal pain that began last night. She states that she feels occasional sharp pain. she has associated nausea. She denies any dysuria, vomiting, diarrhea, fever, vaginal bleeding, abnormal vaginal discharge, dysuria, dark urine, odor to the urine, urgency. 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 No past medical history. No allergies to medications. last Menstrual cycle July 20, 2020. /P: 0/A: 1 Severity scale (0 -10): 7 - Related Data Previous Rx's Medication Instructions Recorded Last Taken Type predniSONE [Deltasone] 20 mg PO DAILY #5 tablet 12/18/18 Unknown Rx predniSONE [Prednisone] 50 mg PO DAILY #5 tablet 01/11/19 Unknown Rx Acetaminophen/Codeine [Tylenol 1 tab PO Q6H PRN #15 tab 04/17/19 Unknown Rx /Codeine # 3 tab] Ketorolac [Toradol] 10 mg PO Q8H PRN #20 tablet 04/17/19 Unknown Rx Ondansetron [Zofran Odt] 4 mg PO Q6HR #20 tab.rapdis 04/17/19 Unknown Rx Tamsulosin [Flomax] 0.4 mg PO QDAY #10 cap 04/17/19 Unknown Rx Acetaminophen [Acetaminophen TAB] 650 mg PO Q6HR PRN #30 tablet 11/06/20 Unknown Rx Amoxicillin [Trimox CAP] 500 mg PO Q8H 7 Days #21 capsule 11/06/20 Unknown Rx Acetaminophen [Tylenol] 650 mg PO Q8HR PRN #20 capsule 11/27/20 Unknown Rx Metoclopramide [Reglan] 10 mg PO Q8HR PRN #12 tab 11/27/20 Unknown Rx Allergies Allergy/AdvReac Type Severity Reaction Status Date / Time No Known Allergies Allergy Verified 03/02/16 12:05 ED Review of Systems ROS: Stated complaint: DIZZY 17 WK PREG Other details as noted in HPI Comment: All other systems reviewed and negative ED Past Medical Hx - Past Medical History Previous Medical History?: No - Surgical History Past Surgical History?: No - Social History Smoking Status: Never Smoker - Medications Home Medications: Home Medications Medication Instructions Recorded Confirmed Last Taken Type predniSONE [Deltasone] 20 mg PO DAILY #5 tablet 12/18/18 Unknown Rx predniSONE [Prednisone] 50 mg PO DAILY #5 tablet 01/11/19 Unknown Rx Acetaminophen/Codeine [Tylenol 1 tab PO Q6H PRN #15 tab 04/17/19 Unknown Rx /Codeine # 3 tab] Ketorolac [Toradol] 10 mg PO Q8H PRN #20 tablet 04/17/19 Unknown Rx Ondansetron [Zofran Odt] 4 mg PO Q6HR #20 tab.rapdis 04/17/19 Unknown Rx Tamsulosin [Flomax] 0.4 mg PO QDAY #10 cap 04/17/19 Unknown Rx Acetaminophen [Acetaminophen TAB] 650 mg PO Q6HR PRN #30 tablet 11/06/20 Unknown Rx Amoxicillin [Trimox CAP] 500 mg PO Q8H 7 Days #21 capsule 11/06/20 Unknown Rx Acetaminophen [Tylenol] 650 mg PO Q8HR PRN #20 capsule 11/27/20 Unknown Rx Metoclopramide [Reglan] 10 mg PO Q8HR PRN #12 tab 11/27/20 Unknown Rx ED Physical Exam - General Limitations: No Limitations General appearance: alert, in no apparent distress - Head Head exam: Present: atraumatic, normocephalic - Eye Eye exam: Present: normal appearance - ENT ENT exam: Present: mucous membranes moist - Respiratory Respiratory exam: Present: normal lung sounds bilaterally. Absent: respiratory distress, wheezes, rales, rhonchi, stridor, chest wall tenderness, accessory muscle use, decreased breath sounds, prolonged expiratory - Cardiovascular Cardiovascular Exam: Present: regular rate, normal rhythm, normal heart sounds. Absent: systolic murmur, diastolic murmur, rubs, gallop - GI/Abdominal GI/Abdominal exam: Present: soft, normal bowel sounds. Absent: distended, tenderness, guarding, rebound, rigid - Neurological Exam Neurological exam: Present: alert, oriented X3 - Psychiatric Psychiatric exam: Present: normal affect, normal mood - Skin Skin exam: Present: warm, dry, intact ED Course Vital Signs 11/27/20 11:38 Temperature 98.7 F Pulse Rate 92 H Respiratory 20 Rate Blood Pressure 118/58 O2 Sat by Pulse 99 Oximetry ED Medical Decision Making - Lab Data Result diagrams: 11/27/20 12:19 11/27/20 12:19 Lab Results 11/27/20 11/27/20 11/27/20 Range/Units 12:19 12:19 12:19 WBC 6.6 (4.5-11.0) K/mm3 RBC 4.01 (3.65-5.03) M/mm3 Hgb 11.6 (10.1-14.3) gm/dl Hct 34.7 (30.3-42.9) % MCV 87 (79-97) fl MCH 29 (28-32) pg MCHC 34 (30-34) % RDW 13.8 (13.2-15.2) % Plt Count 145 (140-440) K/mm3 Lymph % (Auto) 7.5 L (13.4-35.0) % [place] % (Auto) 8.7 H (0.0-7.3) % Eos % (Auto) 0.2 (0.0-4.3) % Baso % (Auto) 0.1 (0.0-1.8) % Lymph # (Auto) 0.5 L (1.2-5.4) K/mm3 [place] # (Auto) 0.6 (0.0-0.8) K/mm3 Eos # (Auto) 0.0 (0.0-0.4) K/mm3 Baso # (Auto) 0.0 (0.0-0.1) K/mm3 Seg Neutrophils % 83.5 H (40.0-70.0) % Seg Neutrophils # 5.5 (1.8-7.7) K/mm3 Sodium 136 L (137-145) mmol/L Potassium 3.6 (3.6-5.0) mmol/L Chloride 100.9 (98-107) mmol/L Carbon Dioxide 25 (22-30) mmol/L Anion Gap 14 mmol/L BUN 6 L (7-17) mg/dL Creatinine 0.5 L (0.6-1.2) mg/dL Estimated GFR > 60 ml/min BUN/Creatinine Ratio 12 % Glucose 93 (65-100) mg/dL Calcium 9.1 (8.4-10.2) mg/dL Total Bilirubin 0.30 (0.1-1.2) mg/dL AST 41 H (5-40) units/L ALT 53 (7-56) units/L Alkaline Phosphatase 29 L (35-129) units/L Total Protein 6.5 (6.3-8.2) g/dL Albumin 3.8 L (3.9-5) g/dL Albumin/Globulin Ratio 1.4 % Lipase 15 (13-60) units/L HCG, Quant 9413 H (0-4) mIU/mL Urine Color (Yellow) Urine Turbidity (Clear) Urine pH (5.0-7.0) Ur Specific [place] (1.003-1.030) Urine Protein (Negative) mg/dL Urine Glucose (UA) (Negative) mg/dL Urine Ketones (Negative) mg/dL Urine Blood (Negative) Urine Nitrite (Negative) Urine Bilirubin (Negative) Urine Urobilinogen (<2.0) mg/dL Ur Leukocyte Esterase (Negative) Urine WBC (Auto) (0.0-6.0) /HPF Urine RBC (Auto) (0.0-6.0) /HPF U Epithel Cells (Auto) (0-13.0) /HPF Urine Mucus /HPF 11/27/20 Range/Units Unknown WBC (4.5-11.0) K/mm3 RBC (3.65-5.03) M/mm3 Hgb (10.1-14.3) gm/dl Hct (30.3-42.9) % MCV (79-97) fl MCH (28-32) pg MCHC (30-34) % RDW (13.2-15.2) % Plt Count (140-440) K/mm3 Lymph % (Auto) (13.4-35.0) % [place] % (Auto) (0.0-7.3) % Eos % (Auto) (0.0-4.3) % Baso % (Auto) (0.0-1.8) % Lymph # (Auto) (1.2-5.4) K/mm3 [place] # (Auto) (0.0-0.8) K/mm3 Eos # (Auto) (0.0-0.4) K/mm3 Baso # (Auto) (0.0-0.1) K/mm3 Seg Neutrophils % (40.0-70.0) % Seg Neutrophils # (1.8-7.7) K/mm3 Sodium (137-145) mmol/L Potassium (3.6-5.0) mmol/L Chloride (98-107) mmol/L Carbon Dioxide (22-30) mmol/L Anion Gap mmol/L BUN (7-17) mg/dL Creatinine (0.6-1.2) mg/dL Estimated GFR ml/min BUN/Creatinine Ratio % Glucose (65-100) mg/dL Calcium (8.4-10.2) mg/dL Total Bilirubin (0.1-1.2) mg/dL AST (5-40) units/L ALT (7-56) units/L Alkaline Phosphatase (35-129) units/L Total Protein (6.3-8.2) g/dL Albumin (3.9-5) g/dL Albumin/Globulin Ratio % Lipase (13-60) units/L HCG, Quant (0-4) mIU/mL Urine Color Yellow (Yellow) Urine Turbidity Hazy (Clear) Urine pH 6.0 (5.0-7.0) Ur Specific [place] 1.019 (1.003-1.030) Urine Protein <15 mg/dl (Negative) mg/dL Urine Glucose (UA) Neg (Negative) mg/dL Urine Ketones 20 (Negative) mg/dL Urine Blood Neg (Negative) Urine Nitrite Neg (Negative) Urine Bilirubin Neg (Negative) Urine Urobilinogen < 2.0 (<2.0) mg/dL Ur Leukocyte Esterase Tr (Negative) Urine WBC (Auto) 3.0 (0.0-6.0) /HPF Urine RBC (Auto) 2.0 (0.0-6.0) /HPF U Epithel Cells (Auto) 10.0 (0-13.0) /HPF Urine Mucus 2+ /HPF - Radiology Data Radiology results: report reviewed Ordering Physician: SUSANA LAND Date of Service: 11/27/20 Procedure(s): US OB >= 14 weeks Fetus Accession Number(s): [id number] cc: SUSANA LAND ULTRASOUND OBSTETRIC INDICATION / CLINICAL INFORMATION: , abd pain. Clinical Gestational Age (GA) in weeks, days: 17 weeks 5 days TECHNIQUE: Transabdominal. COMPARISON: None available. FINDINGS: There is a single intrauterine . Examination is not tailored to evaluate detailed anatomy. Biparietal Diameter = 4.4 cm = 19 weeks 3 days Head Circumference = 16.6 cm = 19 weeks 2 days Abdominal Circumference = 13.2 cm = 18 weeks 5 days Femur Length = 3 cm = 19 weeks 1 day Average Ultrasound Age (AUA) = 19 weeks 1 day Heart Rate: 167 beats per minute. Estimated Weight in grams (if calculated): 268 g Position: cephalic. Cervix: closed. Length in cm (if measured): 3.7 cm Placenta: Posterior and free of the os. Amniotic Fluid Volume: Adequate Amniotic Fluid Index (ANDREA) in cm (if calculated): Not calculated. Maternal Adnexa: No significant abnormality. IMPRESSION: Single, living intrauterine with estimated sonographic age of 19 weeks 1 day. No acute abnormality identified. Signer Name: Silvio Russell MD Signed: 11/27/2020 1:22 PM Workstation Name: [id number] Transcribed By: JS Dictated By: SILVIO RUSSELL MD Electronically Authenticated By: SILVIO RUSSELL MD Signed Date/Time: 11/27/20 132 DD/ 1318 TD/TT: - Medical Decision Making Patient is a 30-year-old female who presents emergency room with complaints of left lateral abdominal pain that began last night. She states that she feels occasional sharp pain. she has associated nausea. She denies any dysuria, vomiting, diarrhea, fever, vaginal bleeding, abnormal vaginal discharge, dysuria, dark urine, odor to the urine, urgency. 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 No past medical history. No allergies to medications. last Menstrual cycle July 20, 2020. /P: 0/A: 1. Vitals are normal. No abdominal tenderness on exam, no guarding, no rebound, no rigidity, normal bowel sounds, no peritoneal signs. Labs are stable. hCG quant is 9413. UA is within normal limits. OB ultrasound:Single, living intrauterine with estimated sonographic age of 19 weeks 1 day. No acute abnormality identified. Patient given Tylenol, Reglan, Benadryl while in the emergency department and symptoms completely improved and she was feeling much better ready to go home. Patient was able to tolerate p.o. intake without difficulty. Discussed all results with patient and answered questions. Patient given prescription for Tylenol and Reglan. Advised patient Please take medication as prescribed as needed. Increase your water intake. Practice pelvic rest. Follow-up with your SPA ASSISTANT MANAGER. Return to emergency room for any new or worsening symptoms. Critical care attestation.: If time is entered above; I have spent that time in minutes in the direct care of this critically ill patient, excluding procedure time. ED Disposition Clinical Impression: Abdominal pain affecting , Nausea Disposition: - TO HOME OR SELFCARE Is pt being admited?: No Does the pt Need Aspirin: No Condition: Stable Instructions: Abdominal Pain During , Abdominal Pain (ED) Additional Instructions: Please take medication as prescribed as needed. Increase your water intake. Practice pelvic rest. Follow-up with your SPA ASSISTANT MANAGER. Return to emergency room for any new or worsening symptoms. Prescriptions: Metoclopramide [Reglan] 10 mg PO Q8HR PRN #12 tab PRN Reason: nausea Acetaminophen [Tylenol] 650 mg PO Q8HR PRN #20 capsule PRN Reason: pain Referrals: PRIMARY CARE, [Primary Care Provider] - 2-3 Days [facility] [Provider Group] - 2-3 Days Time of Disposition: 14:16 Print Language: BELARUSIAN
== END 2020-11-27 14:22 | disposition home or self-care (01) ==
LOC: ED 11:25
DX: O26.892 Other specified pregnancy related conditions, second trimester (principal); R10.9 Unspecified abdominal pain; R11.0 Nausea; Z3A.17 17 weeks gestation of pregnancy; Z79.899 Other long term (current) drug therapy
CPT/HCPCS: 36415; 76805; 80053; 81001; 83690; 84702; 85025

== ENCOUNTER 2021-05-02 00:36 | Outpatient (CLI) | payer OTHER ==
[2021-05-02 00:59] VITALS: BP 118/60
== END 2021-05-02 01:37 | disposition home or self-care (01) ==
LOC: TRG 00:36 → APU 00:37 → TRG 01:37
PROVIDERS: ATTEND Obstetrics & Gynecology
DX: Z34.93 Encounter for supervision of normal pregnancy, unspecified, third trimester (principal); Z3A.39 39 weeks gestation of pregnancy
CPT/HCPCS: 59025; Q0177

== ENCOUNTER 2021-05-04 00:24 | Inpatient (IN) | payer OTHER ==
[2021-05-04] MEDS ORDERED: ePHEDrine SULFATE 50 MG/1 ML INJ IV PRN ×2 (01:45→04:06)
[2021-05-04] MEDS ORDERED: MINERAL OIL 30 ML ORAL LIQD PO PRN (01:45)
[2021-05-04] MEDS ORDERED: LIDOCAINE (2%) 20 MG/1 ML VIAL 20 ML MDV INFILTRATI ONE ×2 (01:45→16:15)
[2021-05-04] MEDS ORDERED: METHYLERGONOVINE MALEATE 0.2 MG/ML VIAL IM PRN (01:45)
[2021-05-04] MEDS ORDERED: OXYTOCIN 10 UNIT/1 ML INJ IM PRN (01:45)
[2021-05-04] MEDS ORDERED: LOPERAMIDE 2 MG CAP PO PRN (01:45)
[2021-05-04] MEDS ORDERED: CARBOPROST TROMETHAMINE 250 MCG/1 ML INJ IM PRN (01:45)
[2021-05-04] MEDS ORDERED: TERBUTALINE 1 MG/1 ML INJ SUB-Q PRN (01:45)
[2021-05-04] MEDS ORDERED: AMPICILLIN/NS 2 GM/100 ML 2 GM/100 ML BAG IV ONE (01:45)
[2021-05-04] MEDS ORDERED: miSOPROStol 200 MCG TAB PR PRN (01:45)
[2021-05-04] MEDS ORDERED: OXYTOCIN DRIP 30 UNITS/500 ML BAG IV SCH ×2 (02:00→08:00)
--- NOTE | 2021-05-04 02:02 | History and Physical Report ---
History of Present Illness Date of examination: 05/04/21 Date of admission: 05/04/2021 Chief complaint: contractions History of present illness: EDC Confirmation: 05/02/2021 Gestational Age: 40 2/7 weeks Past History : 2 Term Births: 0 Premature Births: 0 Living Children: 0 Para: 0 Mult. Births: 0 Prev : 0 Prev. attempt? 0 Aborta: 1 Elect. Ab: 0 Spont. Ab: 1 Ectopics: 0 # 1 Delivery date: 2015 Delivery type: SAB Past Medical History: Negative Past Medical History Past Surgical History: Negative Past Surgical History Family History Summary: First Degree Blood Relative - Has No Known Family History - Entered On: 09/16/2020 Social History: Patient is single Smoking History: Patient has never smoked. Risk Factors: Smoked Tobacco Use: Never smoker Smokeless Tobacco Use: Never HIV high-risk behavior: low risk Caffeine use: 0 drinks per day Alcohol use: yes Comments: occ prior to preg. 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 Infection History Hx of STD: chlamydia HIV Risk Eval: low risk Hepatitis B Risk Eval: low risk Personal hx. of genital herpes: no Rash, Viral, or Febrile illness since last LMP? no Varicella/Chicken Pox Status: Previous Disease TB Risk: no Genetic History Congenital Heart Defect: Mom: no Dad: no Pa Disease: Mom: no Dad: no Thalassemia Mom: no Dad: no Neural Tube Defect Mom: no Dad: no Down's Syndrome Mom: no Dad: no Levon-Sachs Mom: no Dad: no Sickle Cell Disease/Trait Mom: no Dad: no Hemophilia Mom: no Dad: no Muscular Dystrophy Mom: no Dad: no Cystic Fibrosis Mom: no Dad: no [place] Chorea Mom: no Dad: no Mental Retardation Mom: no Dad: no Fragile X Mom: no Dad: no Other Genetic/Chromosomal Disorder Mom: no Dad: no Child w/other defect Mom: no Dad: no Enviromental Exposures Enviromental Exposures Reviewed Xray Exposure: no Medication, drug, or alcohol use since LMP: no Chemical/Other Exposure: no Exposure to Cat Liter: no Hx of Parvovirus (Fifth Disease): no Occupational Exposure to Children: none Comments: unemployed Active Medications (reviewed today): None Current Allergies (reviewed today): No known allergies Past History Past Medical History: other (see HPI) Past Surgical History: other (see HPI) 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: other (see HPI) Family/Genetic History: other (see HPI) Social history: other (see HPI) - Obstetrical History Expected Date of Delivery: 05/02/21 Actual Gestation: 40 Week(s) 2 Day(s) : 2 Para: 0 Hx # Term Pregnancies: 0 Number of Pregnancies: 0 Spontaneous Abortions: 1 Induced : 0 Number of Living Children: 0 Medications and Allergies Allergies Allergy/AdvReac Type Severity Reaction Status Date / Time No Known Allergies Allergy Verified 03/02/16 12:05 Home Medications Medication Instructions Recorded Confirmed Last Taken Type predniSONE [Deltasone] 20 mg PO DAILY #5 tablet 12/18/18 Unknown Rx predniSONE [Prednisone] 50 mg PO DAILY #5 tablet 01/11/19 Unknown Rx Acetaminophen/Codeine [Tylenol 1 tab PO Q6H PRN #15 tab 04/17/19 Unknown Rx /Codeine # 3 tab] Ketorolac [Toradol] 10 mg PO Q8H PRN #20 tablet 04/17/19 Unknown Rx Ondansetron [Zofran Odt] 4 mg PO Q6HR #20 tab.rapdis 04/17/19 Unknown Rx Tamsulosin [Flomax] 0.4 mg PO QDAY #10 cap 04/17/19 Unknown Rx Acetaminophen [Acetaminophen TAB] 650 mg PO Q6HR PRN #30 tablet 11/06/20 Unknown Rx Amoxicillin [Trimox CAP] 500 mg PO Q8H 7 Days #21 capsule 11/06/20 Unknown Rx Acetaminophen [Tylenol] 650 mg PO Q8HR PRN #20 capsule 11/27/20 Unknown Rx Metoclopramide [Reglan] 10 mg PO Q8HR PRN #12 tab 11/27/20 Unknown Rx Review of Systems All systems: negative Genitourinary: contractions - Vital Signs Vital signs: Vital Signs Pulse BP 74 123/67 05/04/21 00:39 05/04/21 00:39 Temp Pulse Resp BP Pulse Ox 99 F 75 18 123/67 98 05/04/21 00:41 05/04/21 01:40 05/04/21 00:41 05/04/21 00:41 05/04/21 01:40 - Physical Exam Breasts: Positive: deferred Cardiovascular: Regular rate Lungs: Positive: Normal air movement Abdomen: Positive: normal appearance, soft Genitourinary (Female): Positive: normal external genitalia, normal perenium Vagina: Positive: normal moisture Uterus: Positive: normal size, normal contour. Negative: tender Anus/Rectum: Positive: normal perianal skin Extremities: Positive: normal - Obstetrical FHR: auscultation normal, category 1 (at this time in Labor room) Uterine Contraction Monitor Mode: Palpation Uterine Contraction Pattern: Regular Uterine Tone Measurement Phase: Contraction Uterine Contraction Intensity: Moderate Results All other labs normal. 03/31/21 Tests: (1) Ct, Ng, Trich vag by GERMAN ([id number]) Order Note: Clinical Information: SRC:VR SRC:UR Chlamydia by GERMAN Negative Negative *1 Gonococcus by GERMAN Negative Negative *2 Trich vag by GERMAN [A] Positive Negative *3 Tests: (2) Strep Gp B GERMAN ([id number]) ! Strep Gp B GERMAN [A] Positive Negative *4 Centers for Disease Control and Prevention (CDC) and [place] [employer] of Obstetricians and Gynecologists (ACOG) guidelines for prevention of group B streptococcal (GBS) disease specify co-collection of a vaginal and rectal swab specimen to maximize sensitivity of GBS detection. Per the CDC and ACOG, swabbing both the lower vagina and rectum substantially increases the yield of detection compared with sampling the vagina alone. Penicillin G, ampicillin, or cefazolin are indicated for intrapartum prophylaxis of GBS colonization. Reflex susceptibility testing should be performed prior to use of clindamycin only on GBS isolates from penicillin-allergic women who are considered a high risk for anaphylaxis. Treatment with vancomycin without additional testing is warranted if resistance to clindamycin is noted. 10/14/20 Tests: (1) Profile I ([id number]) Order Note: Clinical Information: SRC:UR HBsAg Screen Negative Negative *1 RPR Non Reactive Non Reactive *2 Rubella Antibodies, IgG 1.41 index Immune >0.99 *3 Non-immune <0.90 Equivocal 0.90 - 0.99 Immune >0.99 ABO Grouping B *4 Rh Factor Negative *5 Please note: Prior records for this patient's ABO / Rh type are not available for additional verification. Antibody Screen Negative Negative *6 WBC 8.5 x10E3/uL 3.4-10.8 *7 RBC 4.40 x10E6/uL 3.77-5.28 *8 Hemoglobin 12.5 g/dL 11.1-15.9 *9 Hematocrit 37.5 % 34.0-46.6 *10 MCV 85 fL 79-97 *11 MCH 28.4 pg 26.6-33.0 *12 MCHC 33.3 g/dL 31.5-35.7 *13 RDW 13.6 % 11.7-15.4 *14 Platelets 198 x10E3/uL 150-450 *15 Neutrophils 71 % Not Estab. *16 Lymphs 21 % Not Estab. *17 Monocytes 7 % Not Estab. *18 Eos 1 % Not Estab. *19 Basos 0 % Not Estab. *20 ! Immature Cells <No Reported Value> *21 Neutrophils (Absolute) 6.0 x10E3/uL 1.4-7.0 *22 Lymphs (Absolute) 1.8 x10E3/uL 0.7-3.1 *23 Monocytes(Absolute) 0.6 x10E3/uL 0.1-0.9 *24 Eos (Absolute) 0.1 x10E3/uL 0.0-0.4 *25 Baso (Absolute) 0.0 x10E3/uL 0.0-0.2 *26 ! Immature Granulocytes 0 % Not Estab. *27 ! Immature Grans (Abs) 0.0 x10E3/uL 0.0-0.1 *28 ! NRBC <No Reported Value> *29 Hematology Comments: <No Reported Value> *30 Tests: (2) HIV Ag/Ab with Reflex ([id number]) HIV Screen 4th Generation wRfx Non Reactive Non Reactive *31 Tests: (3) HCV Ab w/Rflx to Verification ([id number]) ! HCV Ab <0.1 s/co ratio 0.0-0.9 *32 Tests: (4) Comment: ([id number]) ! Comment: SPRCS *33 Non reactive HCV antibody screen is consistent with no HCV infection, unless recent infection is suspected or other evidence exists to indicate HCV infection. Tests: (5) Urine Culture, Routine ([id number]) Urine Culture, Routine Final report *34 Tests: (6) Result ([id number]) ! Result 1 No growth *35 Assessment and Plan Pt @40 wks presents to triage with c/o active labor; reports painful contractions and desires for epidural now. Pt 1cm in office on 04/29/21 and now SVE 4-5/70/-3 per RN. Labs reviewed and pt GBS+ and H/O Trich + treated on 03/31/21 and 05/02/21. Pt with B negative blood type and received Rhogam on 02/10/2021 in office. Orders given for routine admission with GBS treatment. POC reviewed with pt. Pt may have epidural as desired. 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
[2021-05-04] MEDS: LACTATED RINGERS 1,000 ML IV SCH ×4 (02:24→13:15)
[2021-05-04] MEDS ORDERED: fentaNYL 100 MCG/2 ML INJ IV ONE (02:32)
[2021-05-04 03:01] LABS: Hematocrit 31.6 % (30.3-42.9); Hemoglobin 10.4 gm/dl (10.1-14.3); Mean Corpuscular HGB Conc 33 % (30-34); Mean Corpuscular Volume 75 fl (79-97); Platelet Count 154 K/mm3 (140-440); Red Blood Count 4.21 M/mm3 (3.65-5.03); Red Cell Distribution Width 16.4 % (13.2-15.2)
[2021-05-04] MEDS ORDERED: NALOXONE 2 MG/2 ML INJ IV PRN (04:06)
[2021-05-04] MEDS ORDERED: ONDANSETRON 4 MG/2 ML INJ IV PRN ×2 (04:24→17:49)
--- NOTE | 2021-05-04 04:50 | Anesthesia Consultation ---
Anesthesia Consult and Med Hx Date of service: 05/04/21 - Airway Anesthetic Teeth Evaluation: Poor ROM Head & Neck: Adequate Mental/Hyoid Distance: Adequate Mallampati Class: Class II Intubation Access Assessment: Good - Pulmonary Exam CTA: Yes - Cardiac Exam Cardiac Exam: RRR - Pre-Operative Health Status ASA Pre-Surgery Classification: ASA2 Proposed Anesthetic Plan: Epidural - Pulmonary Hx Smoking: No Hx Asthma: No Hx Respiratory Symptoms: No SOB: No COPD: No Home Oxygen Therapy: No Hx Pneumonia: No Hx Sleep Apnea: No - Cardiovascular System Hx Hypertension: No Hx Coronary Artery Disease: No Hx Heart Attack/AMI: No Hx Angina: No Hx Percutaneous Transluminal Coronary Angioplasty (PTCA): No Hx Cardia Arrhythmia: No Hx Pacemaker: No Hx Internal Defibrillator: No Hx Valvular Heart Disease: No Hx Heart Murmur: No Hx Peripheral Vascular Disease: No - Central Nervous System Hx Neuromuscular Disorder: No Hx Seizures: No CVA: No Hx Back Pain: Yes Hx Psychiatric Problems: No - Gastrointestinal Hx Ulcer: No Hx Gastroesophageal Reflux Disease: Yes - Endocrine Hx Renal Disease: No Hx End Stage Renal Disease: No Hx Cirrhosis: No Hx Liver Disease: No Hx Insulin Dependent Diabetes: No Hx Non-Insulin Dependent Diabetes: No Hx Thyroid Disease: No Hx Hypothyroidism: No Hx Hyperthyroidism: No - Hematic Hx Anemia: No Hx Sickle Cell Disease: No - Other Systems Hx Alcohol Use: Yes Hx Substance Use: No Hx Cancer: No Hx Obesity: Yes
--- NOTE | 2021-05-04 05:00 | Progress Note ---
Labor Epidural - Labor Epidural Start Time: 04:16 Stop Time: 04:33 Performed by:: HARJINDER DISLA Procedure: Patient is requesting a laboring epidural for laboring pain. Patient IDed, H&P reviewed, all questions and concerns were answered, and consent was signed. Timeout was performed at bedside. Patient in sitting position. Sterile prep and drape was performed. [3] ml of 1% lidocaine skin wheal at L[3]- L [4]. 18- gauge Tuohy epidural needle was advanced to loss of resistance with saline technique 6cm. Single dural perforation via 27 guage spinal needle placed through the shaft of Epidural needle. Positive CSF via spinal needle. Negative CSF negative blood via Epidural needle. Epidural catheter advanced to [10] centimeters. [NEGATIVE] Aspiration [NEGATIVE] test dose. Negative Paresthesia. Sterile dressing applied. Patient tolerated procedure.
[2021-05-04] MEDS: fentaNYL-BUPIV 2 MCG/ML-0.125% 200 MCG/100 ML BAG EPIDURAL SCH ×2 (05:19→13:15)
[2021-05-04] MEDS: AMPICILLIN/NS 1 GM/50 ML 1 GM/50 ML BAG IV SCH ×3 (05:33→13:40)
--- NOTE | 2021-05-04 07:57 | Event Note ---
Date: 05/04/21 Pt comfortable after epidural, rarely serg; SVE /-2. Augmentation d/w pt and pt agrees. Orders placed and POC reviewed with pt and RN at bedside. Dr Oconnor made aware.
--- NOTE | 2021-05-04 16:45 | Procedure Note ---
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
[2021-05-04] MEDS ORDERED: diphenhydrAMINE 25 MG CAP PO PRN (17:49)
[2021-05-04] MEDS ORDERED: WITCH HAZEL/ GLYCERIN PAD TP PRN (17:49)
[2021-05-04] MEDS ORDERED: LANOLIN/ZINC/DIMETHICONE (LANSINOH) 7 GM TP PRN (17:49)
[2021-05-04] MEDS ORDERED: PROMETHAZINE 25 MG TAB PO PRN (17:49)
[2021-05-04] MEDS ORDERED: MAGNESIUM HYDROXIDE (MOM) ORAL LIQD UDC PO PRN (17:49)
[2021-05-04] MEDS ORDERED: ACETAMINOPHEN 325 MG TAB PO PRN (17:49)
[2021-05-04] MEDS ORDERED: BENZOCAINE/MENTHOL 20/0.5% TOP SPRAY 56 GM TP PRN (17:49)
[2021-05-04] MEDS: IBUPROFEN 600 MG TAB PO SCH (18:29)
[2021-05-04] MEDS: DOCUSATE SODIUM 100 MG CAP PO SCH (22:50)
[2021-05-05] MEDS: IBUPROFEN 600 MG TAB PO SCH ×2 (00:05→11:29)
--- NOTE | 2021-05-05 04:33 | Post Anesthesia Evaluation ---
- Post Anesthesia Evaluation Patient Participated: Yes Airway Patent: Yes Stable Respiratory Function: Yes Nausea/Vomiting: No Temp > 96.8F: Yes Pain Manageable: Yes Adequeate Hydration: Yes Anesthesia Complications: No Block Receding Appropriately: Yes Patient on Ventilator: No
--- NOTE | 2021-05-05 06:29 | Discharge Summary ---
Providers - Providers Date of Admission: 05/04/21 03:41 Date of discharge: 05/05/21 (pt desires d/c today if possible) Attending physician: QING MEJIA Primary care physician: CONSTRUCTION ENGINEER Hospitalization Reason for admission: active labor, IUP at term Delivery: Episiotomy: none Laceration: none Other procedures: none complications: none Discharge diagnosis: IUP at term delivered [place] baby: male (Pt will call OB office to atvares circumcision) Hospital course: uncomplicated vaginal delivery Pt resting Bottle feeding VSS FF below umb Lochia mod Perineum intact H&H pending No s/sx of anemia Doing well s/p vag delivery P: d/c today with instructions RTO 4 weeks PP care and 1 week for her son's circumcision. RX on chart Condition at discharge: Good Disposition: DC-01 TO HOME OR SELFCARE - Discharge Diagnoses (1) Spontaneous vaginal delivery Status: Acute Comment: RTO 4 weeks PP Care Plan - Discharge Medications Prescriptions: Lidocain2.5%/Prilocai2.5% [Emla] 5 gm TP PRN #1 tube Ibuprofen [Motrin 800 MG tab] 800 mg PO TID PRN #30 tablet PRN Reason: Pain - Provider Discharge Summary Activity: routine, no sex for 6 weeks, no heavy lifting 4 weeks, no strenuous exercise Diet: routine Instructions: routine Additional instructions: [] Smoking cessation referral if applicable(refer to patient education folder for contact #) [] Refer to [facility]'s [facility] [address] Booklet Call your doctor immediately for: * Fever > 100.5 * Heavy vaginal bleeding ( >1 pad per hour) * Severe persistent headache * Shortness of breath * Reddened, hot, painful area to leg or breast * Drainage or odor from incision. * Keep incision clean and dry at all times and follow doctor's instructions regarding bathing/showering - Follow up plan Follow up: PRIMARY CARE, [Primary Care Provider] - 7 Days DINO TORRES CNM [Advanced Practice Nurse] - 7 Days (Congratulations! Please call [phone] to schedule your son's circumcision in 1 week and your visit in 4 weeks. Bring EMLA cream with you to his visit Do NOT use at home. Take medication as prescribed. Call with any concerns.)
[2021-05-05 09:02] LABS: Hematocrit 29.5 % (30.3-42.9); Hemoglobin 9.6 gm/dl (10.1-14.3)
[2021-05-05] MEDS ORDERED: PRENATAL VIT27-FE FUMARATE-FOLIC ACID VIT TAB PO SCH (10:00)
[2021-05-05] MEDS: DOCUSATE SODIUM 100 MG CAP PO SCH (11:28)
[2021-05-05 17:07] VITALS: BP 111/62
== END 2021-05-05 17:19 | disposition home or self-care (01) | DRG 774 ==
LOC: TRG 00:24 → APU 00:24 → TRG 03:40 → LD 03:41 → OB 20:00
PROVIDERS: ADMIT Obstetrics & Gynecology; ATTEND Obstetrics & Gynecology
PROC: 10E0XZZ Delivery of Products of Conception, External Approach (ICD-10-PCS; principal; 2021-05-04)
PROC: 3E0R3BZ Introduction of Anesthetic Agent into Spinal Canal, Percutaneous Approach (ICD-10-PCS; 2021-05-04)
PROC: 00HU33Z Insertion of Infusion Device into Spinal Canal, Percutaneous Approach (ICD-10-PCS; 2021-05-04)
DX: O99.824 Streptococcus B carrier state complicating childbirth (principal); O98.32 Other infections with a predominantly sexual mode of transmission complicating childbirth; A59.8 Trichomoniasis of other sites; O99.214 Obesity complicating childbirth; O99.62 Diseases of the digestive system complicating childbirth; Z20.822 Contact with and (suspected) exposure to COVID-19; O77.0 Labor and delivery complicated by meconium in amniotic fluid; Z37.0 Single live birth; Z3A.40 40 weeks gestation of pregnancy
CPT/HCPCS: 36415; 59025; 85014; 85018; 85027; 85460; 85461; 86592; 86850; 86900; 86901; G0378; J0290; J2590; J2790; J3010; J7120; Q0177; U0003

== ENCOUNTER 2021-07-24 17:39 | Observation (INO) | payer OTHER ==
--- NOTE | 2021-07-24 18:38 | Event Note ---
ED Screening Note Date of service: 07/24/21 Time: 18:35 ED Screening Note: 31-year-old female patient with history of alcohol use presents to the emergency department with complaints of epigastric abdominal pain, nausea, and vomiting starting today. No known sick contacts. No current steroid or antibiotic use. No recent travel. Actively vomiting on exam. General: Awake, appropriately interactive. Moaning, uncomfortable, actively vomiting. Neck: Supple. Full range of motion intact. Cardiovascular: Normal peripheral perfusion. Pulmonary: No respiratory distress. Patient is speaking normally without use of accessory muscles. Abdomen: Soft, nondistended. Diffuse upper abdominal tenderness. Skin: No apparent rashes or lesions. Neurological: No facial asymmetry. Speech is clear. Follows commands. Patient is alert and oriented. Musculoskeletal: Moves all four extremities spontaneously with normal range of motion. Psych: Cooperative. Appropriate mood and affect. I have greeted and performed a focused rapid initial assessment of this patient. A comprehensive ED assessment and evaluation of the patient, analysis of all test results, and completion of the medical decision-making process will be conducted by additional ED providers. This initial assessment/diagnostic orders /clinical plan/treatment(s) is/are subject to change based on patients health status, clinical progression and re-assessment. Further treatment and workup at subsequent clinical provider's discretion. Patient/guardian urged not to elope from the ED as their condition may be serious if not clinically assessed and managed.
[2021-07-24] MEDS ORDERED: SODIUM CHLORIDE 0.9% 1000 ML 1,000 ML IV ONE (19:10)
[2021-07-24] MEDS ORDERED: ONDANSETRON 4 MG/2 ML INJ IV ONE (19:10)
--- NOTE | 2021-07-24 19:10 | Emergency Department Report ---
HPI - General Chief Complaint: Abdominal Pain Time Seen by Provider: 07/24/21 19:07 - HPI HPI: This is a 31-year-old -[place] female presents to the emergency department with a complaint of nausea with vomiting and upper abdominal pain that has been going on since this morning. She has not taken anything for symptoms prior to presentation. She denies any past medical history. She does admit to some occasional alcohol use but nothing today and no history of dependence. She denies any illicit drug use. No recent travel or sick contacts at home. Currently she says her abdominal pain is 8 out of 10 in intensity. No known aggravating or alleviating factors. ED Past Medical Hx - Past Medical History Previous Medical History?: No Hx Hypertension: No Hx Heart Attack/AMI: No Hx Diabetes: No Hx Deep Vein Thrombosis: No Hx Liver Disease: No Hx Renal Disease: No Hx Sickle Cell Disease: No Hx Seizures: No Hx Asthma: No Hx COPD: No Hx HIV: No - Surgical History Past Surgical History?: No Hx Pacemaker: No Hx Internal Defibrillator: No - Social History Smoking Status: Never Smoker Substance Use Type: None - Medications Home Medications: Home Medications Medication Instructions Recorded Confirmed Last Taken Type predniSONE [Deltasone] 20 mg PO DAILY #5 tablet 12/18/18 05/04/21 Unknown Rx predniSONE [Prednisone] 50 mg PO DAILY #5 tablet 01/11/19 05/04/21 Unknown Rx Acetaminophen/Codeine [Tylenol 1 tab PO Q6H PRN #15 tab 04/17/19 05/04/21 Unknown Rx /Codeine # 3 tab] Ketorolac [Toradol] 10 mg PO Q8H PRN #20 tablet 04/17/19 05/04/21 Unknown Rx Ondansetron [Zofran Odt] 4 mg PO Q6HR #20 tab.rapdis 04/17/19 05/04/21 Unknown Rx Tamsulosin [Flomax] 0.4 mg PO QDAY #10 cap 04/17/19 05/04/21 Unknown Rx Acetaminophen [Acetaminophen TAB] 650 mg PO Q6HR PRN #30 tablet 11/06/20 05/04/21 Unknown Rx Amoxicillin [Trimox CAP] 500 mg PO Q8H 7 Days #21 capsule 11/06/20 05/04/21 U nknown Rx Acetaminophen [Tylenol] 650 mg PO Q8HR PRN #20 capsule 01/13/21 06/20/21 Unknown Rx Metoclopramide [Reglan] 10 mg PO Q8HR PRN #12 tab 11/27/20 05/04/21 Unknown Rx Ibuprofen [Motrin 800 MG tab] 800 mg PO TID PRN #30 tablet 05/05/21 Unknown Rx Lidocain2.5%/Prilocai2.5% [Emla] 5 gm TP PRN #1 tube 05/05/21 Unknown Rx ED Review of Systems ROS: Stated complaint: STOMACH PAIN Other details as noted in HPI Comment: All other systems reviewed and negative Constitutional: denies: chills, fever Eyes: denies: eye pain, vision change ENT: denies: ear pain, throat pain Respiratory: denies: cough, shortness of breath Cardiovascular: denies: chest pain, palpitations Gastrointestinal: abdominal pain, nausea, vomiting. denies: diarrhea, constipation Genitourinary: denies: dysuria, discharge Musculoskeletal: denies: back pain, arthralgia Skin: denies: rash, lesions Neurological: denies: headache, weakness Physical Exam - Physical Exam Vital Signs: Vital Signs 07/24/21 17:52 Temperature 98.2 F Pulse Rate 71 Respiratory 24 Rate Blood Pressure 117/50 O2 Sat by Pulse 97 Oximetry Physical Exam: GENERAL: The patient is well-developed well-nourished. HENT: Normocephalic. Atraumatic. Patient has moist mucous membranes. EYES: Extraocular motions are intact. NECK: Supple. Trachea is midline. CHEST/LUNGS: Clear to auscultation. There is no respiratory distress noted. HEART/CARDIOVASCULAR: Regular. There is no tachycardia. There is no murmur. ABDOMEN: Abdomen is soft. There is middle to upper abdominal tenderness to palpation. No guarding. Patient has normal bowel sounds. There is no abdominal distention. SKIN: Skin is warm and dry. NEURO: The patient is awake, alert, and oriented. The patient is cooperative. The patient has no focal neurologic deficits. Normal speech. MUSCULOSKELETAL: There is no tenderness or deformity. There is no limitation range of motion. BACK: Mild bilateral CVA tenderness to palpation. ED Course Vital Signs 07/24/21 17:52 Temperature 98.2 F Pulse Rate 71 Respiratory 24 Rate Blood Pressure 117/50 O2 Sat by Pulse 97 Oximetry - Consultations Consultation #1: 07/24/21 23:09 I spoke to the general surgeon on-call, Dr. Brunner. He is aware of the patient's presentation and CT findings of appendicitis. He says that the consult should be placed under Dr. Bates. ED Medical Decision Making - Lab Data Result diagrams: 07/24/21 18:41 07/24/21 18:41 Lab Results 07/24/21 07/24/21 07/24/21 Range/Units 18:41 18:41 18:41 WBC 16.5 H (4.5-11.0) K/mm3 RBC 4.94 (3.65-5.03) M/mm3 Hgb 13.2 (10.1-14.3) gm/dl Hct 39.6 (30.3-42.9) % MCV 80 (79-97) fl MCH 27 L (28-32) pg MCHC 34 (30-34) % RDW 20.4 H (13.2-15.2) % Plt Count 231 (140-440) K/mm3 Add Manual Diff Complete Total Counted 100 Seg Neutrophils % Licensed Chemical Spray Technician Seg Neuts % (Manual) 88.0 H (40.0-70.0) % Lymphocytes % (Manual) 8.0 L (13.4-35.0) % Monocytes % (Manual) 4.0 (0.0-7.3) % Nucleated RBC % Not Reportable Seg Neutrophils # Man 14.5 H (1.8-7.7) K/mm3 Band Neutrophils # 0.0 K/mm3 Lymphocytes # (Manual) 1.3 (1.2-5.4) K/mm3 Abs React Lymphs (Man) 0.0 K/mm3 Monocytes # (Manual) 0.7 (0.0-0.8) K/mm3 Eosinophils # (Manual) 0.0 (0.0-0.4) K/mm3 Basophils # (Manual) 0.0 (0.0-0.1) K/mm3 Metamyelocytes # 0.0 K/mm3 Myelocytes # 0.0 K/mm3 Promyelocytes # 0.0 K/mm3 Blast Cells # 0.0 K/mm3 WBC Morphology Not Reportable Hypersegmented Neuts Not Reportable Hyposegmented Neuts Not Reportable Hypogranular Neuts Not Reportable Smudge Cells Not Reportable Toxic Granulation Not Reportable Toxic Vacuolation Not Reportable Dohle Bodies Not Reportable Pelger-Huet Anomaly Not Reportable Romy Rods Not Reportable Platelet Estimate Not Reportable Clumped Platelets Not Reportable Plt Clumps, EDTA Not Reportable Large Platelets Not Reportable Giant Platelets Not Reportable Platelet Satelliting Not Reportable Plt Morphology Comment Not Reportable RBC Morphology Not Reportable Dimorphic RBCs Not Reportable Polychromasia Not Reportable Hypochromasia Not Reportable Poikilocytosis Not Reportable Anisocytosis 1+ Microcytosis Rare Macrocytosis Not Reportable Spherocytes Not Reportable Pappenheimer Bodies Not Reportable Sickle Cells Not Reportable Target Cells Not Reportable Tear Drop Cells Not Reportable Ovalocytes Not Reportable Helmet Cells Not Reportable [place] Bodies Not Reportable [place] Rings Not Reportable [place] Cells Not Reportable Bite Cells Not Reportable Crenated Cell Not Reportable Elliptocytes Not Reportable Acanthocytes (Spur) Not Reportable Rouleaux Not Reportable Hemoglobin C Crystals Not Reportable Schistocytes Not Reportable Malaria parasites Not Reportable Rene Bodies Not Reportable Hem Pathologist Commnt No Sodium 138 (137-145) mmol/L Potassium 4.0 (3.6-5.0) mmol/L Chloride 100.4 (98-107) mmol/L Carbon Dioxide 26 (22-30) mmol/L Anion Gap 16 mmol/L BUN 7 (7-17) mg/dL Creatinine 0.7 (0.6-1.2) mg/dL Estimated GFR > 60 ml/min BUN/Creatinine Ratio 10 % Glucose 107 H (65-100) mg/dL Calcium 9.8 (8.4-10.2) mg/dL Magnesium 1.70 (1.7-2.3) mg/dL Total Bilirubin 0.60 (0.1-1.2) mg/dL AST 18 (5-40) units/L ALT 18 (7-56) units/L Alkaline Phosphatase 46 (35-129) units/L Total Protein 7.8 (6.3-8.2) g/dL Albumin 4.3 (3.9-5) g/dL Albumin/Globulin Ratio 1.2 % Lipase 20 (13-60) units/L HCG, Qual Negative (Negative) Plasma/Serum Alcohol (0-0.07) % 07/24/21 Range/Units 18:41 WBC (4.5-11.0) K/mm3 RBC (3.65-5.03) M/mm3 Hgb (10.1-14.3) gm/dl Hct (30.3-42.9) % MCV (79-97) fl MCH (28-32) pg MCHC (30-34) % RDW (13.2-15.2) % Plt Count (140-440) K/mm3 Add Manual Diff Total Counted Seg Neutrophils % Seg Neuts % (Manual) (40.0-70.0) % Lymphocytes % (Manual) (13.4-35.0) % Monocytes % (Manual) (0.0-7.3) % Nucleated RBC % Seg Neutrophils # Man (1.8-7.7) K/mm3 Band Neutrophils # K/mm3 Lymphocytes # (Manual) (1.2-5.4) K/mm3 Abs React Lymphs (Man) K/mm3 Monocytes # (Manual) (0.0-0.8) K/mm3 Eosinophils # (Manual) (0.0-0.4) K/mm3 Basophils # (Manual) (0.0-0.1) K/mm3 Metamyelocytes # K/mm3 Myelocytes # K/mm3 Promyelocytes # K/mm3 Blast Cells # K/mm3 WBC Morphology Hypersegmented Neuts Hyposegmented Neuts Hypogranular Neuts Smudge Cells Toxic Granulation Toxic Vacuolation Dohle Bodies Pelger-Huet Anomaly Romy Rods Platelet Estimate Clumped Platelets Plt Clumps, EDTA Large Platelets Giant Platelets Platelet Satelliting Plt Morphology Comment RBC Morphology Dimorphic RBCs Polychromasia Hypochromasia Poikilocytosis Anisocytosis Microcytosis Macrocytosis Spherocytes Pappenheimer Bodies Sickle Cells Target Cells Tear Drop Cells Ovalocytes Helmet Cells [place] Bodies [place] Rings Betzy Cells Bite Cells Crenated Cell Elliptocytes Acanthocytes (Spur) Rouleaux Hemoglobin C Crystals Schistocytes Malaria parasites Rene Bodies Hem Pathologist Commnt Sodium (137-145) mmol/L Potassium (3.6-5.0) mmol/L Chloride (98-107) mmol/L Carbon Dioxide (22-30) mmol/L Anion Gap mmol/L BUN (7-17) mg/dL Creatinine (0.6-1.2) mg/dL Estimated GFR ml/min BUN/Creatinine Ratio % Glucose (65-100) mg/dL Calcium (8.4-10.2) mg/dL Magnesium (1.7-2.3) mg/dL Total Bilirubin (0.1-1.2) mg/dL AST (5-40) units/L ALT (7-56) units/L Alkaline Phosphatase (35-129) units/L Total Protein (6.3-8.2) g/dL Albumin (3.9-5) g/dL Albumin/Globulin Ratio % Lipase (13-60) units/L HCG, Qual (Negative) Plasma/Serum Alcohol < 0.01 (0-0.07) % - Radiology Data Radiology results: report reviewed CT ABDOMEN AND PELVIS WITH IV CONTRAST INDICATION: Pt complains of upper abd pain with nausea and vomiting. COMPARISON: None available. TECHNIQUE: All CT scans at this facility use dose modulation, automated exposure control, iterative reconstruction or weight based dosing, when appropriate, to reduce radiation dose to as low as reasonably achievable. FINDINGS: Lung Bases: No significant abnormality. Skeletal System: No acute abnormality. ABDOMEN: Liver: No significant abnormality. Gallbladder: No significant abnormality. Bile Ducts: No significant abnormality. Pancreas: No significant abnormality. Spleen: No significant abnormality. Adrenals: No significant abnormality. Right Kidney: No significant abnormality. Left Kidney: No significant abnormality. Upper GI tract: No significant abnormality. Lymph Nodes: No significant adenopathy. Aorta: No significant abnormality. Additional Findings: No significant abnormality. PELVIS: Colon: No acute abnormality. Urinary Bladder and Distal Ureters: No significant abnormality. Appendix: The appendix is dilated and fluid-filled with mild mural enhancement. This is best seen at the midline on coronal image 52. Lymph Nodes: No significant adenopathy. Additional Findings: There is trace free fluid in the pelvis. IMPRESSION: 1. Acute appendicitis. Appendix is midline. There is trace free fluid in the pelvis. - Medical Decision Making This patient presents to the emergency department with nausea, vomiting and abdominal pain that started this morning. The patient presents to the emergency department actively vomiting. She has middle to upper abdominal tenderness to palpation. The abdomen is nondistended. Vital signs reassuring including being afebrile. Patient's labs are mostly unremarkable except for a leukocytosis of 16.5. The patient had a CT scan of the abdomen pelvis with IV contrast that resulted as acute appendicitis. General surgery was contacted and consulted. The patient has been given IV fluid resuscitation, IV analgesia, IV antibiotics. She will be admitted to the hospitalist service and was accepted for admission by Dr. Lott. Critical Care Time: No Critical care attestation.: If time is entered above; I have spent that time in minutes in the direct care of this critically ill patient, excluding procedure time. ED Disposition Clinical Impression: Acute appendicitis Qualifiers: Acute appendicitis type: unspecified acute appendicitis type Qualified Code(s): K35.80 - Unspecified acute appendicitis Abdominal pain Qualifiers: Abdominal location: unspecified location Qualified Code(s): R10.9 - Unspecified abdominal pain Nausea & vomiting Qualifiers: Vomiting type: unspecified Vomiting Intractability: non-intractable Qualified Code(s): R11.2 - Nausea with vomiting, unspecified Disposition: ADMITTED INPATIENT Is pt being admited?: Yes Condition: Serious Time of Disposition: 23:10
[2021-07-24 19:16] LABS: Hematocrit 39.6 % (30.3-42.9); Hemoglobin 13.2 gm/dl (10.1-14.3); Mean Corpuscular HGB Conc 34 % (30-34); Mean Corpuscular Volume 80 fl (79-97); Platelet Count 231 K/mm3 (140-440); Red Blood Count 4.94 M/mm3 (3.65-5.03)
[2021-07-24 19:19] LABS: Red Cell Distribution Width 20.4 % (13.2-15.2)
[2021-07-24 19:29] LABS: Alanine Aminotransferase 18 units/L (7-56); Albumin 4.3 g/dL (3.9-5); Blood Urea Nitrogen 7 mg/dL (7-17); Calcium 9.8 mg/dL (8.4-10.2); Hemolysis Index 3
[2021-07-24 19:32] LABS: BUN/Creatinine Ratio 10
[2021-07-24 20:19] LABS: Anisocytosis 1+; Total Cells Counted 100
[2021-07-24] MEDS ORDERED: ONDANSETRON 4 MG/2 ML INJ ONE (21:44)
[2021-07-24] MEDS ORDERED: MORPHINE 4 MG/1 ML INJ IV ONE (22:36)
--- NOTE | 2021-07-24 22:49 | Cat Scan Report ---
CT ABDOMEN AND PELVIS WITH IV CONTRAST INDICATION: Pt complains of upper abd pain with nausea and vomiting. COMPARISON: None available. TECHNIQUE: All CT scans at this facility use dose modulation, automated exposure control, iterative reconstructi on or weight based dosing, when appropriate, to reduce radiation dose to as low as reasonably achieva ble. FINDINGS: Lung Bases: No significant abnormality. Skeletal System: No acute abnormality. ABDOMEN: Liver: No significant abnormality. Gallbladder: No significant abnormality. Bile Ducts: No significant abnormality. Pancreas: No significant abnormality. Spleen: No significant abnormality. Adrenals: No significant abnormality. Right Kidney: No significant abnormality. Left Kidney: No significant abnormality. Upper GI tract: No significant abnormality. Lymph Nodes: No significant adenopathy. Aorta: No significant abnormality. Additional Findings: No significant abnormality. PELVIS: Colon: No acute abnormality. Urinary Bladder and Distal Ureters: No significant abnormality. Appendix: The appendix is dilated and fluid-filled with mild mural enhancement. This is best seen at the midline on coronal image 52. Lymph Nodes: No significant adenopathy. Additional Findings: There is trace free fluid in the pelvis. IMPRESSION: 1. Acute appendicitis. Appendix is midline. There is trace free fluid in the pelvis. Signer Name: Rubio Adame MD Signed: 07/24/2021 10:44 PM Workstation Name: [id number]
[2021-07-24] MEDS ORDERED: PIPERACIL/TAZOBACTA 4.5/NS 100 4.5 GM/100 ML VIAL IV ONE (22:58)
[2021-07-24] MEDS ORDERED: HYDROmorphone 1 MG/1 ML INJ IV PRN (23:20)
[2021-07-24] MEDS ORDERED: ACETAMINOPHEN 325 MG TAB PO PRN (23:20)
[2021-07-24] MEDS ORDERED: oxyCODONE /ACETAMINOPHEN 5-325MG TAB PO PRN (23:20)
[2021-07-24] MEDS ORDERED: ONDANSETRON 4 MG/2 ML INJ IV PRN (23:20)
--- NOTE | 2021-07-24 23:29 | History and Physical Report ---
History of Present Illness Date of examination: 07/24/21 Date of admission: 07/24/21 Chief complaint: Abdominal pain Nausea vomiting History of present illness: 31-year-old female with no significant past medical history was brought to the hospital because of nausea with vomiting and upper abdominal pain that has been going on since this morning. Abdominal pain is 8/10. She has not taken anything for symptoms prior to presentation. She denies any past medical history. She does admit to some occasional alcohol use but nothing today and no history of dependence. She denies any illicit drug use. No recent travel or sick contacts at home. No known aggravating or alleviating factors. In the emergency room patient has a CT scan of the abdomen which shows acute appendicitis. Also patient WBC 16.5. Going to admit the patient will consult surgery to see the patient Medications and Allergies Allergies Allergy/AdvReac Type Severity Reaction Status Date / Time No Known Allergies Allergy Verified 07/24/21 17:52 Home Medications Medication Instructions Recorded Confirmed Last Taken Type predniSONE [Deltasone] 20 mg PO DAILY #5 tablet 12/18/18 05/04/21 Unknown Rx predniSONE [Prednisone] 50 mg PO DAILY #5 tablet 01/11/19 05/04/21 Unknown Rx Acetaminophen/Codeine [Tylenol 1 tab PO Q6H PRN #15 tab 04/17/19 05/04/21 Unknown Rx /Codeine # 3 tab] Ketorolac [Toradol] 10 mg PO Q8H PRN #20 tablet 04/17/19 05/04/21 Unknown Rx Ondansetron [Zofran Odt] 4 mg PO Q6HR #20 tab.rapdis 04/17/19 05/04/21 Unknown Rx Tamsulosin [Flomax] 0.4 mg PO QDAY #10 cap 04/17/19 05/04/21 Unknown Rx Acetaminophen [Acetaminophen TAB] 650 mg PO Q6HR PRN #30 tablet 11/06/20 05/04/21 Unknown Rx Amoxicillin [Trimox CAP] 500 mg PO Q8H 7 Days #21 capsule 11/06/20 05/04/21 Unknown Rx Acetaminophen [Tylenol] 650 mg PO Q8HR PRN #20 capsule 11/27/20 05/04/21 Unknown Rx Metoclopramide [Reglan] 10 mg PO Q8HR PRN #12 tab 11/27/20 05/04/21 Unknown Rx Ibuprofen [Motrin 800 MG tab] 800 mg PO TID PRN #30 tablet 05/05/21 Unknown Rx Lidocain2.5%/Prilocai2.5% [Emla] 5 gm TP PRN #1 tube 05/05/21 Unknown Rx Active Meds: Active Medications Piperacillin Sod/Tazobactam Sod (Zosyn/Ns 4.5gm/100ml) 4.5 gm in 100 mls @ 200 mls/hr IV ONCE ONE; Protocol Stop: 07/24/21 23:27 Review of Systems All systems: negative Gastrointestinal: abdominal pain, nausea, vomiting Exam - Constitutional Vitals: Temp Pulse Resp BP Pulse Ox 98.2 F 71 24 135/62 97 07/24/21 17:52 07/24/21 17:52 07/24/21 17:52 07/24/21 22:40 07/24/21 17:52 General appearance: Present: no acute distress, well-nourished - EENT Eyes: Present: PERRL ENT: hearing intact, clear oral mucosa - Neck Neck: Present: supple, normal ROM - Respiratory Respiratory effort: normal Respiratory: bilateral: CTA - Cardiovascular Heart Sounds: Present: S1 & S2. Absent: rub, click - Extremities Extremities: pulses symmetrical, No edema Peripheral Pulses: within normal limits - Abdominal General gastrointestinal: Present: soft, non-tender, non-distended, normal bowel sounds Female genitourinary: Present: normal - Integumentary Integumentary: Present: clear, warm, dry - Musculoskeletal Musculoskeletal: gait normal, strength equal bilaterally - Psychiatric Psychiatric: appropriate mood/affect, intact judgment & insight - Neurologic Neurologic: CNII-XII intact, moves all extremities Results - Labs CBC & Chem 7: 07/24/21 18:41 07/24/21 18:41 Labs: Laboratory Last Values WBC 16.5 K/mm3 (4.5-11.0) H 07/24/21 18:41 RBC 4.94 M/mm3 (3.65-5.03) 07/24/21 18:41 Hgb 13.2 gm/dl (10.1-14.3) 07/24/21 18:41 Hct 39.6 % (30.3-42.9) 07/24/21 18:41 MCV 80 fl (79-97) 07/24/21 18:41 MCH 27 pg (28-32) L 07/24/21 18:41 MCHC 34 % (30-34) 07/24/21 18:41 RDW 20.4 % (13.2-15.2) H 07/24/21 18:41 Plt Count 231 K/mm3 (140-440) 07/24/21 18:41 Add Manual Diff Complete 07/24/21 18:41 Total Counted 100 07/24/21 18:41 Seg Neutrophils % Sports Medicine Trainer 07/24/21 18:41 Seg Neuts % (Manual) 88.0 % (40.0-70.0) H 07/24/21 18:41 Lymphocytes % (Manual) 8.0 % (13.4-35.0) L 07/24/21 18:41 Monocytes % (Manual) 4.0 % (0.0-7.3) 07/24/21 18:41 Nucleated RBC % Not Reportable 07/24/21 18:41 Seg Neutrophils # Man 14.5 K/mm3 (1.8-7.7) H 07/24/21 18:41 Band Neutrophils # 0.0 K/mm3 07/24/21 18:41 Lymphocytes # (Manual) 1.3 K/mm3 (1.2-5.4) 07/24/21 18:41 Abs React Lymphs (Man) 0.0 K/mm3 07/24/21 18:41 Monocytes # (Manual) 0.7 K/mm3 (0.0-0.8) 07/24/21 18:41 Eosinophils # (Manual) 0.0 K/mm3 (0.0-0.4) 07/24/21 18:41 Basophils # (Manual) 0.0 K/mm3 (0.0-0.1) 07/24/21 18:41 Metamyelocytes # 0.0 K/mm3 07/24/21 18:41 Myelocytes # 0.0 K/mm3 07/24/21 18:41 Promyelocytes # 0.0 K/mm3 07/24/21 18:41 Blast Cells # 0.0 K/mm3 07/24/21 18:41 WBC Morphology Not Reportable 07/24/21 18:41 Hypersegmented Neuts Not Reportable 07/24/21 18:41 Hyposegmented Neuts Not Reportable 07/24/21 18:41 Hypogranular Neuts Not Reportable 07/24/21 18:41 Smudge Cells Not Reportable 07/24/21 18:41 Toxic Granulation Not Reportable 07/24/21 18:41 Toxic Vacuolation Not Reportable 07/24/21 18:41 Dohle Bodies Not Reportable 07/24/21 18:41 Pelger-Huet Anomaly Not Reportable 07/24/21 18:41 Romy Rods Not Reportable 07/24/21 18:41 Platelet Estimate Not Reportable 07/24/21 18:41 Clumped Platelets Not Reportable 07/24/21 18:41 Plt Clumps, EDTA Not Reportable 07/24/21 18:41 Large Platelets Not Reportable 07/24/21 18:41 Giant Platelets Not Reportable 07/24/21 18:41 Platelet Satelliting Not Reportable 07/24/21 18:41 Plt Morphology Comment Not Reportable 07/24/21 18:41 RBC Morphology Not Reportable 07/24/21 18:41 Dimorphic RBCs Not Reportable 07/24/21 18:41 Polychromasia Not Reportable 07/24/21 18:41 Hypochromasia Not Reportable 07/24/21 18:41 Poikilocytosis Not Reportable 07/24/21 18:41 Anisocytosis 1+ 07/24/21 18:41 Microcytosis Rare 07/24/21 18:41 Macrocytosis Not Reportable 07/24/21 18:41 Spherocytes Not Reportable 07/24/21 18:41 Pappenheimer Bodies Not Reportable 07/24/21 18:41 Sickle Cells Not Reportable 07/24/21 18:41 Target Cells Not Reportable 07/24/21 18:41 Tear Drop Cells Not Reportable 07/24/21 18:41 Ovalocytes Not Reportable 07/24/21 18:41 Helmet Cells Not Reportable 07/24/21 18:41 [place] Bodies Not Reportable 07/24/21 18:41 [place] Rings Not Reportable 07/24/21 18:41 [place] Cells Not Reportable 07/24/21 18:41 Bite Cells Not Reportable 07/24/21 18:41 Crenated Cell Not Reportable 07/24/21 18:41 Elliptocytes Not Reportable 07/24/21 18:41 Acanthocytes (Spur) Not Reportable 07/24/21 18:41 Rouleaux Not Reportable 07/24/21 18:41 Hemoglobin C Crystals Not Reportable 07/24/21 18:41 Schistocytes Not Reportable 07/24/21 18:41 Malaria parasites Not Reportable 07/24/21 18:41 Rene Bodies Not Reportable 07/24/21 18:41 Hem Pathologist Commnt No 07/24/21 18:41 Sodium 138 mmol/L (137-145) 07/24/21 18:41 Potassium 4.0 mmol/L (3.6-5.0) 07/24/21 18:41 Chloride 100.4 mmol/L (98-107) 07/24/21 18:41 Carbon Dioxide 26 mmol/L (22-30) 07/24/21 18:41 Anion Gap 16 mmol/L 07/24/21 18:41 BUN 7 mg/dL (7-17) 07/24/21 18:41 Creatinine 0.7 mg/dL (0.6-1.2) 07/24/21 18:41 Estimated GFR > 60 ml/min 07/24/21 18:41 BUN/Creatinine Ratio 10 % 07/24/21 18:41 Glucose 107 mg/dL (65-100) H 07/24/21 18:41 Calcium 9.8 mg/dL (8.4-10.2) 07/24/21 18:41 Magnesium 1.70 mg/dL (1.7-2.3) 07/24/21 18:41 Total Bilirubin 0.60 mg/dL (0.1-1.2) 07/24/21 18:41 AST 18 units/L (5-40) 07/24/21 18:41 ALT 18 units/L (7-56) 07/24/21 18:41 Alkaline Phosphatase 46 units/L (35-129) 07/24/21 18:41 Total Protein 7.8 g/dL (6.3-8.2) 07/24/21 18:41 Albumin 4.3 g/dL (3.9-5) 07/24/21 18:41 Albumin/Globulin Ratio 1.2 % 07/24/21 18:41 Lipase 20 units/L (13-60) 09/09/21 18:41 HCG, Qual Negative (Negative) 07/24/21 18:41 Plasma/Serum Alcohol < 0.01 % (0-0.07) 07/24/21 18:41 - Imaging and Cardiology CT scan - abdomen: report reviewed Assessment and Plan VTE prophylaxis?: Chemical Plan of care discussed with patient/family: Yes - Patient Problems (1) Acute appendicitis Status: Acute Plan to address problem: Admit the patient to the medical floor. N.p.o. D5 half-normal saline at the rate of 100 cc/h. Pepcid 20 mg IV every 12 hours. Zosyn 4.5 g IV every 8 hours. Dilaudid 0.5 mg IV every 3 hours as needed. Will consult surgery for possible appendectomy. Recheck CBC BMP in the morning (2) Abdominal pain Status: Acute Plan to address problem: N.p.o. D5 half-normal saline at the rate of 100 cc/h. Pepcid 20 mg IV every 12 hours. Dilaudid 0.5 mg IV every 3 hours as needed. (3) Nausea & vomiting Status: Acute Plan to address problem: N.p.o. D5 half-normal saline at the rate of 100 cc/h. Pepcid 20 mg IV every 12 hours. Dilaudid 0.5 mg IV every 3 hours as needed. (4) DVT prophylaxis Status: Acute Plan to address problem: Heparin 5000 units subcu every 12 hours for DVT prophylaxis. Pepcid 20 mg IV every 12 hours for GI prophylaxis. Patient is a full code
[2021-07-24] MEDS ORDERED: D5W/0.45% NACL 1,000 ML IV SCH (23:45)
[2021-07-25 05:27] LABS: Basophils % (Auto) 0.1 % (0.0-1.8); Eosinophils % (Auto) 0.1 % (0.0-4.3); Hematocrit 35.7 % (30.3-42.9); Hemoglobin 11.8 gm/dl (10.1-14.3); Lymphocytes # (Auto) 1.7 K/mm3 (1.2-5.4); Lymphocytes % (Auto) 14.4 % (13.4-35.0); Mean Corpuscular HGB Conc 33 % (30-34); Mean Corpuscular Volume 80 fl (79-97); Monocytes # (Auto) 0.6 K/mm3 (0.0-0.8); Monocytes % (Auto) 5.5 % (0.0-7.3); Platelet Count 212 K/mm3 (140-440); Red Blood Count 4.46 M/mm3 (3.65-5.03)
[2021-07-25 05:46] LABS: BUN/Creatinine Ratio 10; Blood Urea Nitrogen 6 mg/dL (7-17); Calcium 9.3 mg/dL (8.4-10.2); Hemolysis Index 4
[2021-07-25] MEDS ORDERED: PIPERACIL/TAZOBACTA 4.5/NS 100 4.5 GM/100 ML VIAL IV SCH (08:00)
--- NOTE | 2021-07-25 09:53 | Anesthesia Consultation ---
Anesthesia Consult and Med Hx Date of service: 07/25/21 - Airway Anesthetic Teeth Evaluation: Good ROM Head & Neck: Adequate Mental/Hyoid Distance: Adequate Mallampati Class: Class I Intubation Access Assessment: Good - Pulmonary Exam CTA: Yes - Cardiac Exam Cardiac Exam: No Murmur - Pre-Operative Health Status ASA Pre-Surgery Classification: ASA1, Emergency Proposed Anesthetic Plan: General - Pulmonary Hx Smoking: No Hx Asthma: No Hx Respiratory Symptoms: No SOB: No COPD: No Hx Pneumonia: No Hx Sleep Apnea: No - Cardiovascular System Hx Hypertension: No Hx Coronary Artery Disease: No Hx Heart Attack/AMI: No Hx Angina: No Hx Percutaneous Transluminal Coronary Angioplasty (PTCA): No Hx Cardia Arrhythmia: No Hx Pacemaker: No Hx Internal Defibrillator: No Hx Valvular Heart Disease: No Hx Heart Murmur: No Hx Peripheral Vascular Disease: No - Central Nervous System Hx Neuromuscular Disorder: No Hx Seizures: No CVA: No Hx Back Pain: Yes Hx Psychiatric Problems: No - Gastrointestinal Hx Ulcer: No Hx Gastroesophageal Reflux Disease: Yes - Endocrine Hx Renal Disease: No Hx End Stage Renal Disease: No Hx Cirrhosis: No Hx Liver Disease: No Hx Insulin Dependent Diabetes: No Hx Non-Insulin Dependent Diabetes: No Hx Thyroid Disease: No Hx Hypothyroidism: No Hx Hyperthyroidism: No - Hematic Hx Anemia: No Hx Sickle Cell Disease: No - Other Systems Hx Alcohol Use: Yes Hx Substance Use: No Hx Cancer: No Hx Obesity: Yes
--- NOTE | 2021-07-25 09:54 | Anesthesia Day of Surgery ---
Anesthesia Day of Surgery - Day of Surgery Patient Examined: Yes Patient H&P Reviewed: Yes Patient is NPO: Yes
[2021-07-25] MEDS ORDERED: HEPARIN 5,000 UNIT/1 ML VIAL SUB-Q SCH (10:00)
[2021-07-25] MEDS ORDERED: FAMOTIDINE 20 MG/2 ML INJ IV SCH (10:00)
[2021-07-25] MEDS ORDERED: LIDOCAINE PF 100 MG/5 ML (CARDIAC SYRINGE) IV ONE (11:31)
[2021-07-25] MEDS ORDERED: ROCURONIUM 50 MG/5 ML INJ IV ONE (11:31)
[2021-07-25] MEDS ORDERED: propofoL 200 MG/20 ML VIAL IV ONE (11:32)
[2021-07-25] MEDS ORDERED: fentaNYL 100 MCG/2 ML INJ ONE (11:32)
[2021-07-25] MEDS ORDERED: LIDOCAINE (1%) 10 MG/1 ML VIAL 20 ML MDV ONE (11:34)
[2021-07-25] MEDS ORDERED: BUPIVACAINE/PF (0.25%) 2.5 MG/ML 30 ML VIAL INFILTRATI ONE ×2 (11:34→13:09)
--- NOTE | 2021-07-25 12:04 | Consultation ---
History of Present Illness Consult date: 07/25/21 Reason for consult: abdominal pain Chief complaint: Abdominal pain - History of present illness History of present illness: 31-year-old female with no past medical history who presents to the emergency ro om with 24 hours of abdominal pain. The pain is sharp and localized to the periumbilical region and radiates to the back. She has never had pain like this before. No exacerbating or alleviating factors. No inciting factors. She admits to nausea and vomiting, nonbloody/nonbilious. No fevers or chills. No sick contacts. Past History Past Medical History: No medical history Past Surgical History: No surgical history Social history: no significant social history Family history: no significant family history Medications and Allergies Allergies Allergy/AdvReac Type Severity Reaction Status Date / Time No Known Allergies Allergy Verified 07/24/21 17:52 Home Medications Medication Instructions Recorded Confirmed Last Taken Type predniSONE [Deltasone] 20 mg PO DAILY #5 tablet 12/18/18 05/04/21 Unknown Rx predniSONE [Prednisone] 50 mg PO DAILY #5 tablet 01/11/19 05/04/21 Unknown Rx Acetaminophen/Codeine [Tylenol 1 tab PO Q6H PRN #15 tab 04/17/19 05/04/21 Unknown Rx /Codeine # 3 tab] Ketorolac [Toradol] 10 mg PO Q8H PRN #20 tablet 04/17/19 05/04/21 Unknown Rx Ondansetron [Zofran Odt] 4 mg PO Q6HR #20 tab.rapdis 04/17/19 05/04/21 Unknown Rx Tamsulosin [Flomax] 0.4 mg PO QDAY #10 cap 04/17/19 05/04/21 Unknown Rx Acetaminophen [Acetaminophen TAB] 650 mg PO Q6HR PRN #30 tablet 11/06/20 05/04/21 Unknown Rx Amoxicillin [Trimox CAP] 500 mg PO Q8H 7 Days #21 capsule 11/06/20 05/04/21 Unknown Rx Acetaminophen [Tylenol] 650 mg PO Q8HR PRN #20 capsule 11/27/20 05/04/21 Unknown Rx Metoclopramide [Reglan] 10 mg PO Q8HR PRN #12 tab 11/27/20 05/04/21 Unknown Rx Ibuprofen [Motrin 800 MG tab] 800 mg PO TID PRN #30 tablet 05/05/21 Unknown Rx Lidocain2.5%/Prilocai2.5% [Emla] 5 gm TP PRN #1 tube 05/05/21 Unknown Rx Active Meds: Active Medications Acetaminophen (Acetaminophen 325 Mg Tab) 650 mg PO Q4H PRN PRN Reason: Pain MILD(1-3)/Fever >100.5/MOTLEY Famotidine (Famotidine 20 Mg/2 Ml Inj) 20 mg IV BID [facility] Last Admin: 07/25/21 11:26 Dose: 20 mg Documented by: Heparin Sodium (Porcine) (Heparin 5,000 Unit/1 Ml Vial) 5,000 unit SUB-Q Q12HR [facility] Last Admin: 07/25/21 11:26 Dose: Not Given Documented by: Hydromorphone HCl (Hydromorphone 1 Mg/1 Ml Inj) 0.5 mg IV Q3H PRN PRN Reason: Pain , Severe (7-10) Last Admin: 07/25/21 09:03 Dose: 0.5 mg Documented by: Dextrose/Sodium Chloride (D5/0.45ns) 1,000 mls @ 100 mls/hr IV DIRECT HAKEEM Piperacillin Sod/Tazobactam Sod (Zosyn/Ns 4.5gm/100ml) 4.5 gm in 100 mls @ 200 mls/hr IV Q8H [facility]; Protocol Last Admin: 07/25/21 09:03 Dose: 200 mls/hr Documented by: Ondansetron HCl (Ondansetron 4 Mg/2 Ml Inj) 4 mg IV Q8H PRN PRN Reason: Nausea And Vomiting Oxycodone/Acetaminophen (Oxycodone /Acetaminophen 5-325mg Tab) 1 tab PO Q6H PRN PRN Reason: Pain, Moderate (4-6) Last Admin: 07/25/21 09:03 Dose: 1 tab Documented by: Sodium Chloride (Sodium Chloride 0.9% 10 Ml Flush Syringe) 10 ml IV BID [facility] Last Admin: 07/25/21 11:26 Dose: 10 ml Documented by: Sodium Chloride (Sodium Chloride 0.9% 10 Ml Flush Syringe) 10 ml IV PRN PRN PRN Reason: LINE FLUSH Review of Systems All systems: negative (10 point ROS performed and negative except for that listed in HPI) Exam Vital Signs Temp Pulse Resp BP Pulse Ox 98.2 F 71 24 117/50 97 07/24/21 17:52 07/24/21 17:52 07/24/21 17:52 07/24/21 17:52 07/24/21 17:52 Narrative exam: Gen.: Awake, alert, oriented x3. No apparent distress ENT: Trachea midline. No lymphadenopathy. No scleral icterus or conjunctival pallor CV: S1, S2 present Respiratory: No audible wheezes Abdomen: Soft, nondistended, periumbilical tenderness to palpation. No rebound, rigidity, guarding Extremities: No clubbing, cyanosis, edema Results - Labs 07/25/21 04:46 07/25/21 04:46 Abnormal lab results 07/24/21 07/24/21 07/25/21 Range/Units 18:41 18:41 04:46 WBC 16.5 H 11.5 H (4.5-11.0) K/mm3 MCH 27 L 27 L (28-32) pg RDW 20.4 H 20.0 H (13.2-15.2) % Seg Neutrophils % 79.9 H (40.0-70.0) % Seg Neuts % (Manual) 88.0 H (40.0-70.0) % Lymphocytes % (Manual) 8.0 L (13.4-35.0) % Seg Neutrophils # 9.2 H (1.8-7.7) K/mm3 Seg Neutrophils # Man 14.5 H (1.8-7.7) K/mm3 BUN (7-17) mg/dL Glucose 107 H (65-100) mg/dL 07/25/21 Range/Units 04:46 WBC (4.5-11.0) K/mm3 MCH (28-32) pg RDW (13.2-15.2) % Seg Neutrophils % (40.0-70.0) % Seg Neuts % (Manual) (40.0-70.0) % Lymphocytes % (Manual) (13.4-35.0) % Seg Neutrophils # (1.8-7.7) K/mm3 Seg Neutrophils # Man (1.8-7.7) K/mm3 BUN 6 L (7-17) mg/dL Glucose (65-100) mg/dL Diabetes panel 07/24/21 07/25/21 Range/Units 18:41 04:46 Sodium 138 140 (137-145) mmol/L Potassium 4.0 3.9 (3.6-5.0) mmol/L Chloride 100.4 103.3 (98-107) mmol/L Carbon Dioxide 26 29 (22-30) mmol/L BUN 7 6 L (7-17) mg/dL Creatinine 0.7 0.6 (0.6-1.2) mg/dL Glucose 107 H 99 (65-100) mg/dL Calcium 9.8 9.3 (8.4-10.2) mg/dL AST 18 (5-40) units/L ALT 18 (7-56) units/L Alkaline Phosphatase 46 (35-129) units/L Total Protein 7.8 (6.3-8.2) g/dL Albumin 4.3 (3.9-5) g/dL Calcium panel 07/24/21 07/25/21 Range/Units 18:41 04:46 Calcium 9.8 9.3 (8.4-10.2) mg/dL Albumin 4.3 (3.9-5) g/dL Pituitary panel 07/24/21 07/25/21 Range/Units 18:41 04:46 Sodium 138 140 (137-145) mmol/L Potassium 4.0 3.9 (3.6-5.0) mmol/L Chloride 100.4 103.3 (98-107) mmol/L Carbon Dioxide 26 29 (22-30) mmol/L BUN 7 6 L (7-17) mg/dL Creatinine 0.7 0.6 (0.6-1.2) mg/dL Glucose 107 H 99 (65-100) mg/dL Calcium 9.8 9.3 (8.4-10.2) mg/dL Adrenal panel 07/24/21 07/25/21 Range/Units 18:41 04:46 Sodium 138 140 (137-145) mmol/L Potassium 4.0 3.9 (3.6-5.0) mmol/L Chloride 100.4 103.3 (98-107) mmol/L Carbon Dioxide 26 29 (22-30) mmol/L BUN 7 6 L (7-17) mg/dL Creatinine 0.7 0.6 (0.6-1.2) mg/dL Glucose 107 H 99 (65-100) mg/dL Calcium 9.8 9.3 (8.4-10.2) mg/dL Total Bilirubin 0.60 (0.1-1.2) mg/dL AST 18 (5-40) units/L ALT 18 (7-56) units/L Alkaline Phosphatase 46 (35-129) units/L Total Protein 7.8 (6.3-8.2) g/dL Albumin 4.3 (3.9-5) g/dL - Imaging CT scan - abdomen: report reviewed, image reviewed CT scan - pelvis: report reviewed, image reviewed Assessment and Plan 31-year-old female with acute appendicitis Plan: 1. continue NPO 2. IVF 3. IV abx - on zosyn 4. prn pain and nausea control 5. DVT ppx 6. Recommend appendectomy. All lab and imaging results discussed with the patient. We discussed all risks, benefits, alternatives of surgery and q uestions were answered. Patient is agreeable to proceed. Consent obtained for laparoscopic, possible open appendectomy. We will proceed to the OR today. Thank you for this consultation. Please call with any questions or concerns. Evaluation and treatment of this patient was during the time of the national and state emergency arising from COVID19 coronavirus pandemic. Treatment and procedures performed meet the current and available best practice and guidelines for patient during the COVID pandemic.
[2021-07-25] MEDS ORDERED: dexAMETHasone 20 MG/5 ML VIAL ONE (12:14)
[2021-07-25] MEDS ORDERED: ONDANSETRON 4 MG/2 ML INJ ONE (12:15)
[2021-07-25] MEDS ORDERED: ePHEDrine SULFATE 50 MG/1 ML INJ ONE (12:18)
[2021-07-25] MEDS ORDERED: SODIUM CHLORIDE 0.9% 1000 ML 1,000 ML ONE (12:44)
[2021-07-25] MEDS ORDERED: LIDOCAINE (1%) 10 MG/1 ML VIAL 20 ML MDV INFILTRATI ONE (13:09)
[2021-07-25] MEDS ORDERED: WATER FOR IRRIG STERILE 1,500 ML BOTTLE IR ONE (13:10)
[2021-07-25] MEDS ORDERED: GLYCOPYRROLATE 0.4 MG/2 ML INJ ONE ×2 (13:10)
[2021-07-25] MEDS ORDERED: NEOSTIGMINE 10MG/10 ML INJ MDV ONE (13:10)
--- NOTE | 2021-07-25 13:21 | Operative Report ---
Operative Report Operative Report: Date of operation: 07/25/2021 Preoperative diagnosis: acute appendicitis Postoperative diagnosis: acute appendicitis Procedure performed: Laparoscopic appendectomy Surgeon: Dorian Macedo DO Anesthesia: GETA Findings: Thickened appendix. No evidence of perforation or free fluid EBL:<10cc Specimen: appendix Disposition/Condition: stable to PACU HPI and indication: 31-year-old F presented to ER with RLQ pain x24 hours, n/v. She was found to have periumbilical TTP, an elevated WBC and acute appendicitis on CT scan. Appendectomy was recommended to the patient. All risks, benefits, alternatives of surgery were discussed and questions answered. The patient was agreeable to proceed with surgery. Consent obtained for laparoscopic appendectomy, possible open. Procedure in detail: Patient was identified in the hospital bed and taken back to the OR and placed on the OR table in supine position. After anesthesia was induced a newman catheter was steriley placed by the circulating nurse. A time out was performed. Local anesthetic was infilitrated into all skin incision sites. A supraumbilical incision was made and veress needle inserted. The positioning of the veress needle was confirmed using the saline drop test however the insufflation pressures were high immediately and so veress was removed. A callum incision was made in the left upper quadrant at Orellana's point. The Veress needle was inserted through this incision and position confirmed using the saline drop test. The abdomen was then insufflated to 15mmHg without incident. A 5 mm Optiview trocar was placed via the supraumbilical incision. The Veress needle was visualized and removed. The abdomen was inspected and no underlying injury to the abdominal structures was identified. A 5mm trocar suprapubic and a 12 mm LLQ trocar were placed under direct visualization. The patient was placed in Trendelenburg and tilted to the left. The appendix was visualized appeared thickened without evidence of perforation. There were embryologic adhesions to the lateral abdominal wall. These adhesions were dissected using the harmonic scalpel. The base of the appendix was identified. The mesentery of the appendix was ligated using the harmonic scalpel. The base of the appendix was transected using an ethicon flex stapler 45mm white load. The appendix was placed into an endocatch bag and removed via the 12 mm port. This was passed off the table as specimen. The staple line and mesentery were then inspected. A tiny area of oozing was controlled using clips. No active bleeding visualized hemostasis ensured. The 12mm port fascia was closed with a single interrupted 0 vicryl stitch using the Milton Zacarias device. The remaining ports were removed under direct visualization and the abdomen desufflated. All skin incisions were closed using 4-0 monocryl subcuticular stitches and skin glue. Local anesthetic was once again infiltrated into the incision sites. At the end of the case, all sponge, instrument, sharp counts were correct x2. The patient was awoken from anesthesia, newman catheter removed, and she was taken to PACU in stable condition.
[2021-07-25] MEDS ORDERED: oxyCODONE /ACETAMINOPHEN 5-325MG TAB PO PRN (13:27)
--- NOTE | 2021-07-25 13:51 | Discharge Summary ---
Providers - Providers Date of Admission: 07/24/21 23:20 Date of discharge: 07/25/21 Attending physician: RASHAD SANTIAGO MD 07/24/21 23:06 Consult to Physician [CONS] Routine Comment: Dr. Young spoke with Dr. Brunner @ [phone] Consulting Provider: ОЛЬГА GIORDANO Physician Instructions: Reason For Exam: acute appendicitis Primary care physician: CEASAR DONATO MD Hospitalization Reason for admission: abd pain Condition: Fair Hospital course: Patient admitted for abdominal pain. Imaging demonstrated acute appendicitis. Gen Surgery completed appendectomy. Patient recovering uneventfully post op. Will be discharged home with prescription for [place] as needed for pain. Disposition: HOME / SELF CARE / HOMELESS Final Discharge Diagnosis (Prints w/discharge instructions): Acute Appendicitis Time spent for discharge: 25 Core Measure Documentation - Palliative Care Palliative Care/ Comfort Measures: Not Applicable - Core Measures Any of the following diagnoses?: none Exam - Physical Exam Narrative exam: Narrative exam: Gen.: Awake, alert, oriented x3. No apparent distress ENT: Trachea midline. No lymphadenopathy. No scleral icterus or conjunctival pallor CV: S1, S2 present Respiratory: No audible wheezes Abdomen: Soft, nondistended, periumbilical tenderness to palpation. No rebound, rigidity, guarding Extremities: No clubbing, cyanosis, edema - Constitutional Vitals: Temp Pulse Resp BP Pulse Ox 98 F 77 18 124/65 98 07/25/21 13:25 07/25/21 13:40 07/25/21 13:40 07/25/21 13:40 07/25/21 13:40 Plan Activity: no restrictions Weight Bearing Status: Partial Weight Bearing Wound: open to air, keep clean and dry, per your surgeon's advice Special Instructions: no heavy lifting Follow up with: ОЛЬГА GIORDANO DO [Staff Physician] - 14 Days CEASAR DONATO MD [Primary Care Provider] - 7 Days Forms: Outpatient Surgery DC Inst. Prescriptions: HYDROcodone/APAP 5-325 [[place] 5/325] 1 each PO Q4HR PRN #20 tablet PRN Reason: Pain , Severe (7-10)
--- NOTE | 2021-07-25 14:57 | Post Anesthesia Evaluation ---
- Post Anesthesia Evaluation Patient Participated: Yes Airway Patent: Yes Stable Respiratory Function: Yes Nausea/Vomiting: No Temp > 96.8F: Yes Pain Manageable: Yes Adequeate Hydration: Yes Anesthesia Complications: No Block Receding Appropriately: Not Applicable Patient on Ventilator: No
[2021-07-25 18:50] VITALS: BP 122/71
== END 2021-07-25 15:15 | disposition home or self-care (01) ==
LOC: ED 17:39 → 4A 23:20
PROVIDERS: ADMIT Hospitalist; ATTEND Internal Medicine
DX: K35.80 Unspecified acute appendicitis (principal); R11.2 Nausea with vomiting, unspecified
CPT/HCPCS: 36415; 44970; 74177; 80048; 80053; 83690; 83735; 84703; 85025; 88304; 96361; 96365; 96366; 96375; 99285; G0378; J1100; J1170; J2001; J2270; J2405; J2543; J2704; J2710; J3010; J7030; Q9967; 80320; 85007; G0480

== ENCOUNTER 2021-11-10 12:06 | Emergency (ER) | payer OTHER | END 2021-11-12 04:37 | disposition left against medical advice (07) | LOC: ED 12:06 | DX: K08.89 Other specified disorders of teeth and supporting structures (principal); Z53.21 Procedure and treatment not carried out due to patient leaving prior to being seen by health care provider ==